=== PATIENT | female | born 1955 | race Caucasian/White ===

== ENCOUNTER 2024-04-08 12:49 | Emergency (ER) | payer MEDICARE, SELFPAY ==
--- NOTE | ~2024-04-08 | CT_ITS ---
CLINICAL HISTORY: SOB CT angiography chest with contrast. 3D Postprocessing. Comparison: None Findings: The heart size is normal. RV/LV ratio is normal. Unremarkable thoracic aorta and great vessels. No aneurysm. No acute pulmonary embolus. The visualized thyroid and mediastinum are unremarkable. 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 The lungs are clear. There is no consolidation or pleural effusion. The upper abdomen is unremarkable. No acute fractures. IMPRESSION: There is no evidence of pulmonary artery embolism. This document has been electronically signed by: Irasema Chin MD on 04/08/2024 18:24:24
--- NOTE | ~2024-04-08 | XR_ITS ---
CLINICAL HISTORY: SOB 2 view chest x-ray Comparison: None Findings: The lungs are clear. Heart size is normal. No acute fracture. IMPRESSION: 1. No acute findings. This document has been electronically signed by: Irasema Chin MD on 04/08/2024 15:14:27
--- NOTE | ~2024-04-08 | CT_ITS ---
CLINICAL HISTORY: headaches CT head without contrast Comparison: None Findings: No intra-axial mass, midline shift, hydrocephalus, or acute hemorrhage. No significant atrophy-like change or white matter disease. Mild mucosal thickening within the paranasal sinuses. The orbits are unremarkable. There is no acute fracture. IMPRESSION: 1. No acute intracranial findings. This document has been electronically signed by: Irasema Chin MD on 04/08/2024 18:26:34
[2024-04-08 12:53] VITALS: BP 200/89; PULSE 90; RESP 18; TEMP 35.9; O2SAT 99; BMI 36.1
--- NOTE | 2024-04-08 12:56 | ED.GENADULT ---
HPI - General Adult General Chief complaint: Dyspnea Stated complaint: sob, dizziness, fatigue Time Seen by Provider: 04/08/24 16:23 Source: patient Mode of arrival: ambulatory Limitations: no limitations History of Present Illness ED Provider: Olivier Vidal HPI narrative: 69-year-old female past medical history of hypertension, and depression presents to ED for worsening shortness of breath on exertion for the past 4-5 weeks frequent headaches and chills. Patient denies any leg swelling, calf pain, recent long travel or recent surgery. Patient is on its Toradol and has significant family history of blood clot. Patient states her brother from a pulmonary embolus and her mother also had history of blood clots. Patient denies any bleeding disorders. Patient denies any abdominal pain, nausea, vomiting, coughing up blood, neck stiffness, photophobia, or rash. Patient denies any chest pain Related Data Allergies Allergy/AdvReac Type Severity Reaction Status Date / Time morphine Allergy Unknown Verified 04/08/24 12:58 Review of Systems Review of Systems: Shortness of breath on exertion for the past 4-5 weeks, headaches, chills Yes all other systems are reviewed and are negative [facility] Social History Social History Advance Directives: No Advance Directives Information Provided: No Physical Exam ED Vital Signs: Vital Signs - 24 hr 04/08/24 12:53 04/08/24 16:22 04/08/24 18:55 Temperature 96.6 F L Pulse Rate 90 89 78 Respiratory Rate 18 20 18 Blood Pressure 200/89 H 176/98 H 169/80 H Pulse Oximetry 99 97 98 Oxygen Delivery Method Room Air Room Air 04/08/24 19:15 Temperature 98.0 F Pulse Rate 78 Respiratory Rate 18 Blood Pressure 169/80 H Pulse Oximetry 98 Oxygen Delivery Method Room Air BMI result Body Mass Index 36.1 Const General: cooperative, healthy appearing, comfortable, no acute distress, well developed, alert, awake and Physically active Orientation/consciousness: patient oriented x3 HENMT Head: Yes normal to inspection, Yes No palpable skull fracture present, Yes normocephalic and Yes atraumatic Throat: Yes posterior oropharynx normal, Yes tonsils normal and Yes uvula midline Eyes General: appearance normal, both eyes and all related structures Neck Neck: Yes normal visual inspection, Yes full ROM, Yes no lymphadenopathy, Yes no meningeal signs, Yes trachea midline, Yes supple, No anterior neck swelling and No tender Chest Chest palpation & inspection: normal inspection of the chest and normal palpation of entire chest wall Resp Effort & Inspection: normal respiratory effort and able to speak in complete sentences Cardio Jugular venous distension: no JVD Heart sounds: S1 normal heart sound present and S2 normal heart sound present GI Inspection: Yes normal to inspection Palpation (GI): Soft to palpation, not firm, nontender, no guarding and not rigid General: Yes no CVA tenderness Back/Spine/Pelvis Back: no CVA tenderness and No back tenderness Skin General skin exam: no rashes or lesions noted, elasticity normal and turgor normal Neuro General: patient oriented x3, gait normal, tone normal, moves all extremities, Normal light touch and pain sensation, no meningeal signs, no focal motor deficits, CN's II-XI intact bilaterally and normal sensation to monofilament Extrem Other: Bilateral lower extremity negative for swelling, pitting edema, or calf tenderness General: Yes normal to inspection and Yes full ROM Psych Appearance: grossly normal, well kempt and not disheveled Course Course Course Narrative: This is an RME performed by Jessica Barroso CNP: Additional HPI, ROS, PE not included below will be deferred to primary provider. Patient is a 69-year-old female who reports that over the past 4-5 weeks increasing shortness of breath up and down the stairs. Able to perform her yoga session was in the morning without difficulty. Over the past few months his eye so that having intermittent pounding headaches, cold sweats and chills, generalized fatigue. Admits that mid last year she did have Holter monitor and stress testing due to symptoms, no abnormalities were found Plan: Serum labs, EKG, CXR, viral serologies Medications Administered Discontinued Medications Generic Name Dose Route Start Last Admin Trade Name Freq PRN Reason Stop Dose Admin Iohexol 65 ml 04/08/24 17:40 04/08/24 17:40 Iohexol 350 Mg/Ml 100 Ml Infus..Btl IV 04/08/24 17:41 65 ml ONCE ONE Administration Medical Decision Making Medical Decision Making [facility] Narrative: 69-year-old female presents to ED for continued shortness of breath on exertion for the past 4-5 weeks patient concerned for pulmonary embolus due to being on a stronger and significant family history of pulmonary embolus. Presently patient is not tachypneic or tachycardic. Negative for any leg swelling or calf pain. Initial troponin negative will do a chest CTA to rule out PE. Initial chest x-ray negative. COVID flu and influenza RSV negative 6:31pm: Head CT scan came back normal. 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 Patient has no abdominal pain. Patient made aware of this will follow up with primary care provider. Patient explained worrisome signs and informed to return to the ED immediately Differential Diagnosis Differential Diagnoses: The differential diagnosis associated with the presentation includes (PE, CA, CHF) Admission/Observation Consideration of admission/observation: Escalation of care including admission/observation considered Lab Data MDM Lab Attestation statement: I reviewed the patient's lab results. 04/08/24 13:17 04/08/24 13:17 Labs: Lab Results 04/08/24 04/08/24 04/08/24 Range/Units 13:17 16:27 17:07 WBC 5.6 (4.8-10.8) X10*3/uL RBC 4.87 (4.20-5.50) X10*6/uL Hgb 15.1 (12.0-16.0) g/dl Hct 45.7 (37.0-47.0) % MCV 93.8 (80.0-98.0) fL MCH 31.0 (27.0-33.0) pg MCHC 33.0 (31.0-35.0) g/dl RDW 13.7 (11.0-16.0) % Plt Count 216 (160-400) X10*3/uL MPV 10.3 (9.4-12.3) fL Immature Gran % (Auto) 0.4 (0.0-0.4) % Neut % (Auto) 42.7 L (45-73) % Lymph % (Auto) 46.1 H (20-40) % [place] % (Auto) 7.2 (2-11) % Eos % (Auto) 3.1 (0-4) % Baso % (Auto) 0.5 (0-2) % Lymph # (Auto) 2.6 (1.2-4.9) X10*3/uL [place] # (Auto) 0.4 (0.1-1.2) X10*3/uL Eos # (Auto) 0.2 (0.0-0.4) X10*3/uL Baso # (Auto) 0.0 (0.0-0.2) X10*3/uL Abs Immat Gran (auto) 0.02 (0.00-0.03) X10*3/uL Absolute Neuts (auto) 2.4 (2.0-8.3) x10*3/uL Absolute Nucleated RBC 0.000 (0.0-0.012) X10*3/uL Nucleated RBC % (auto) 0.0 (0.0-0.2) /100WBC Hold Purple Top SEE NOTE PT 11.1 (10.9-12.4) SEC INR 1.0 (0.9-1.1) Sodium 141 (135-145) mmol/L Potassium 4.3 (3.3-5.1) mmol/L Chloride 109 H (96-108) mmol/L Carbon Dioxide 24 (22-29) mmol/L Anion Gap 12 (12-20) BUN 19 H (9-16) mg/dL Creatinine 0.94 (0.5-1.4) mg/dL Estim Creat Clear Calc 67.9 Estimated GFR 59 Random Glucose 100 (60-115) mg/dL Calcium 9.3 (8.4-10.2) mg/dL Magnesium 2.0 (1.6-2.6) mg/dL Total Bilirubin 0.4 (0.0-1.0) mg/dL AST 22 (5-31) U/L ALT 26 (0-31) U/L Alkaline Phosphatase 54 (39-117) U/L Troponin I High Sens < 2.7 < 2.7 (<3.5-17.0) ng/L B-Natriuretic Peptide 20 (<100) pg/mL Total Protein 8.0 (6.5-8.0) g/dL Albumin 4.4 (3.5-5.0) g/dL Lipase 14 (8-78) U/L Urine Color Yellow Urine Appearance Clear Urine pH 5.5 (5.0-9.0) Ur Specific [place] 1.010 (1.005-1.025) Urine Protein Negative (Neg-Trace) mg/dL Urine Glucose (UA) Negative (Negative) mg/dL Urine Ketones Negative (Negative) mg/dL Urine Blood Negative (Negative) Urine Nitrite Negative (Negative) Ur Leukocyte Esterase Negative (Negative) Influenza Type A (PCR) NEGATIVE (Negative) Influenza Type B (PCR) NEGATIVE (Negative) RSV RNA Qual (PCR) NEGATIVE (Negative) SARS-CoV-2 RNA (RT-PCR) NEGATIVE (Negative) Independent Interpretation I performed an independent interpretation of an: EKG (Negative STEMI) and CT Scan Radiology Impression Discussion of test interpretation with radiology: I have reviewed the radiologist's reading. Independent Historian Clinical information obtained from an independent historian. History obtained from or confirmed by: Other (patient) Discharge Plan Discharge Clinical Impression: Breath shortness, Headache Patient Disposition: Home, Self-Care Instructions: Acute Headache (ED), Shortness of Breath (ED) Additional Instructions: Your CT scan labs and EKGs came back reassuring. You will need to follow up with the primary care provider. Return to the ED immediately for any chest pain, shortness of breath, abdominal pain, slurred speech, facial droop, paralysis, loss of vision, leg swelling, calf pain, fever, chills, or any other concerning symptoms. CT angiography chest with contrast. 3D Postprocessing. Comparison: None Findings: The heart size is normal. RV/LV ratio is normal. Unremarkable thoracic aorta and great vessels. No aneurysm. No acute pulmonary embolus. The visualized thyroid and mediastinum are unremarkable. 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 The lungs are clear. There is no consolidation or pleural effusion. The upper abdomen is unremarkable. No acute fractures. IMPRESSION: There is no evidence of pulmonary artery embolism. This document has been electronically signed by: Irasema Chin MD on 04/08/2024 18:24:24 Dictated By: Irasema Chin MD Signed By: <Electronically signed by Irasema Chin MD in OV> 04/08/24 [id number] CLINICAL HISTORY: headaches CT head without contrast Comparison: None Findings: No intra-axial mass, midline shift, hydrocephalus, or acute hemorrhage. No significant atrophy-like change or white matter disease. Mild mucosal thickening within the paranasal sinuses. The orbits are unremarkable. There is no acute fracture. IMPRESSION: 1. No acute intracranial findings. This document has been electronically signed by: Irasema Chin MD on 04/08/2024 18:26:34 Dictated By: Irasema Chin MD Signed By: <Electronically signed by Irasema hCin MD in OV> 04/08/24 [id number] Referrals: Ramin Sequeira DO, MD [Primary Care Provider] - (Shortness of breath for 5 weeks.) Stand Alone Forms: Work/School Release Interventions: ED Discharge Assessment Last Done: 04/08/24 19:15 Discharge Date/Time: 04/08/24 19:17 Print Language: Brazilian
--- NOTE | 2024-04-08 12:58 | ECG_ITS ---
Test Reason : SOB Blood Pressure : */* mmHG Vent. Rate : 72 BPM Atrial Rate : 72 BPM P-R Int : 154 ms QRS Dur : 82 ms QT Int : 406 ms P-R-T Axes : 20 12 22 degrees QTcB Int : 444 ms Normal sinus rhythm with sinus arrhythmia Normal ECG No previous ECGs available Referred By: Carlene Barroso Electronically Signed By: MANDO HEBERT MD
[2024-04-08 13:23] LABS: MANUAL DIFF FLAG NO
[2024-04-08 13:29] LABS: Prothrombin Time 11.1 SEC (10.9-12.4)
[2024-04-08 13:33] LABS: Basophils Percent Auto 0.5 % (0-2); Eosinophils Absolute Auto 0.2 X10*3/uL (0.0-0.4); Eosinophils Percent Auto 3.1 % (0-4); Hematocrit 45.7 % (37.0-47.0); Hemoglobin 15.1 g/dl (12.0-16.0); Imm Gran Abs Auto 0.02 X10*3/uL (0.00-0.03); Imm Gran Pct Auto 0.4 % (0.0-0.4); Lymphocytes Absolute Auto 2.6 X10*3/uL (1.2-4.9); Lymphocytes Percent Auto 46.1 % (20-40); Mean Corpuscular Volume 93.8 fL (80.0-98.0); Mean Platelet Volume 10.3 fL (9.4-12.3); Monocytes Absolute Auto 0.4 X10*3/uL (0.1-1.2); Monocytes Percent Auto 7.2 % (2-11); Neutrophils Absolute Auto 2.4 x10*3/uL (2.0-8.3); Neutrophils Percent Auto 42.7 % (45-73); Platelet Count 216 X10*3/uL (160-400); Red Blood Count 4.87 X10*6/uL (4.20-5.50); Red Cell Distribution Width 13.7 % (11.0-16.0); White Blood Count 5.6 X10*3/uL (4.8-10.8)
[2024-04-08 13:43] LABS: Alanine Aminotransferase 26 U/L (0-31); Albumin Level 4.4 g/dL (3.5-5.0); Alkaline Phosphatase 54 U/L (39-117); Anion Gap 12 (12-20); Aspartate Amino Transferase 22 U/L (5-31); Bilirubin Total 0.4 mg/dL (0.0-1.0); Blood Urea Nitrogen 19 mg/dL (9-16); Calcium 9.3 mg/dL (8.4-10.2); Carbon Dioxide 24 mmol/L (22-29); Chloride 109 mmol/L (96-108); Creatinine Clr Calc Pharmacy 67.9; Estimated Glomerular Filt Rate 59; Glucose Random 100 mg/dL (60-115); Lipase 14 U/L (8-78); Potassium 4.3 mmol/L (3.3-5.1); Sodium 141 mmol/L (135-145)
[2024-04-08 13:48] LABS: B Type Natriuretic Peptide 20 pg/mL (<100)
[2024-04-08 13:50] LABS: Troponin-I High Sensitivity < 2.7 ng/L (<3.5-17.0)
[2024-04-08 14:01] LABS: Influenza A PCR NEGATIVE (Negative); Influenza B PCR NEGATIVE (Negative); Resp Syncy Virus RNA Qual PCR NEGATIVE (Negative); SARS COV2 PCR INHOUSE NEGATIVE (Negative)
[2024-04-08 16:22] VITALS: BP 176/98; PULSE 89; RESP 20; O2SAT 97
[2024-04-08 16:33] LABS: Appearance Urine Clear; Color Urine Yellow; Glucose Urine UA Negative (Negative); Leukocyte Esterase Urine Negative (Negative); Nitrite Urine Negative (Negative); PH 5.5 (5.0-9.0); Urine Blood Negative (Negative); Urine Ketones Negative (Negative); Urine Protein Negative (Neg-Trace)
[2024-04-08 17:37] LABS: Troponin-I High Sensitivity < 2.7 ng/L (<3.5-17.0)
[2024-04-08] MEDS: iohexoL 350 MG/ML 100 ML INFUS..BTL 65 ML IV (17:40)
[2024-04-08 18:55] VITALS: BP 169/80; PULSE 78; RESP 18; O2SAT 98
[2024-04-08 19:15] VITALS: BP 169/80; PULSE 78; RESP 18; TEMP 36.7; O2SAT 98
--- NOTE | 2024-04-08 19:17 | PC.NURSE ---
DC paperwork reviewed with patient, patient requesting all lab work printed, informed patient she can utilize patient portal and/or call medical records, unable to print all lab work her through an ER visit. All other questions answered, patient verbalized understanding. Walked with steady gait out of department.
== END 2024-04-08 19:17 | disposition home or self-care (01) ==
PROVIDERS: Nurse Practitioner Family; Physician Assistant; Emergency Provider Emergency Medicine; PCP Internal Medicine
DX: R06.02 Shortness of breath (principal); R42 Dizziness and giddiness; I49.8 Other specified cardiac arrhythmias; R53.83 Other fatigue; R51.9 Headache, unspecified; Z03.818 Encounter for observation for suspected exposure to other biological agents ruled out; Z79.899 Other long term (current) drug therapy
CPT/HCPCS: 0241U; 36415; 70450; 71046; 71275; 80053; 81003; 83690; 83735; 83880; 84484; 85025; 85610; 93005; 99284; Q9967

== ENCOUNTER → 2024-04-08 12:58 | Outpatient (BNV) | payer MEDICARE, SELFPAY | PROVIDERS: Emergency Provider Emergency Medicine; PCP Internal Medicine; Visit Provider Internal Medicine Cardiovascular Disease | DX: R06.02 Shortness of breath (principal) | CPT/HCPCS: 93010 ==

== ENCOUNTER → 2024-04-08 12:59 | Outpatient (BNV) | payer MEDICARE, SELFPAY | PROVIDERS: PCP Internal Medicine; Visit Provider Radiology Diagnostic Radiology | DX: R06.02 Shortness of breath (principal); R51.9 Headache, unspecified | CPT/HCPCS: 70450; 71046; 71275 ==

== ENCOUNTER 2024-07-31 08:23 | Outpatient (AMB) | payer MEDICARE, SELFPAY ==
--- NOTE | 2024-07-31 08:30 | MHC.PC.OV ---
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 Cloth Required: No Accompanied by: Self / Same As Patient Allergies apricot Allergy (Severe, Verified 07/31/24 09:05) swolen throat baclofen Allergy (Severe, Verified 07/31/24 09:05) close throat morphine Allergy (Verified 07/31/24 09:05) Unknown tegaserod [From Zelnorm] Adverse Reaction (Severe, Verified 07/31/24 09:05) rectal bleeding Medication List - Last Reconciled 07/31/24 by Katt Rosenbaum PA-C cholecalciferol (vitamin D3) 10 mcg PO DAILY coenzyme Q10 (Co Q-10) 10 mg PO TID estradiol 0.5 mg PO DAILY fluticasone propionate 50 mcg/actuation (Flonase Allergy Relief) 1 spray intranasal DAILY loratadine (Allergy Relief (loratadine)) 10 mg PO DAILY losartan 50 mg PO DAILY multivitamin 1 tab PO DAILY venlafaxine ER 37.5 mg PO DAILY Tobacco use date assessed: 07/31/24 Fall risk assessment: 1 Fall in past year Last assessed Fall Risk: 07/31/24 Dental Screening Dental Screen Date: 07/31/24 Did you have a dental visit in the last 12 months?: Yes Did you have a dental problem in the last 6 months where you did not have access to dental care?: No Was dental information given to patient?: Patient has dentist HPI 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 Patient was previously being seen by [facility] last seen 04/10/2024.?She does have a history of diverticulosis s/p partial colectomy.?Mammogram last completed 09/2023 with DEXA scan at that time. MRA/MRI was ordered of the brain for chronic daily headache, echocardiogram was ordered for shortness of breath with consideration of cardiac referral. Patient was referred to General surgery for diaphragmatic hernia. no longer having SOB, chest pain, headaches all have resolved. Patient has had a recent change in insurance was caused her to leave her last practice. She was previously having chest pain, anxiety and shortness of breath which she attributes to relapsing tick fever and recurrent Lyme disease . Patient has been seen by infectious disease for this concern and Lyme disease was ruled out but does occasionally obtain doxycycline for treatment of these episodes. She is no longer having headaches, chest pain or shortness of breath and has not had any and several months. Her workup while she was at [facility] was negative at that time. 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 Medical History Babesiasis Lyme disease Surgical History S/P right rotator cuff repair H/O right hemicolectomy S/P bunionectomy Family History Father No problems noted. Mother Breast cancer Brother No problems noted. Brother No problems noted. Daughter No problems noted. Son No problems noted. Social History Housing: House Patient Tobacco Use Status: Never used Tobacco Tobacco use type: Cigarette e-Cigarette/Vaping Use: Never Used Second Hand Smoke Exposure: No Current occupational status: retired Cognitive needs: No Hearing needs: No Vision needs: Yes Female Reproductive History Menstrual Total pregnancies: 3 Ab spontaneous: 1 History of abnormal pap smear: Yes (more than 20 years ago ) Date of last Bone Density Screenin09/29/23 Questionnaire PHQ-9 Over the last 2 weeks, how often have you been bothered by any of the following problems? 1. Little interest or pleasure in doing things: several days 2. Feeling down, depressed, or hopeless: several days 3. Trouble falling or staying asleep, or sleeping too much: nearly every day 4. Feeling tired or having little energy: nearly every day 5. Poor appetite or overeating: several days 6. Feeling bad about yourself - or that you are a failure or have let yourself or your family down: several days 7. Trouble concentrating on things, such as reading the newspaper or watching television: not at all 8. Moving or speaking so slowly that other people could have noticed. Or the opposite - being so fidgety or restless that you have been moving around a lot more than usual: not at all 9. Thoughts that you would be better off or of hurting yourself in some way: not at all Total score: 10 Depression Screening Interpretation: Positive Depression Screening Follow-up: Existing condition and In treatment Depression Screening Done: Yes 02420 - PHQ-9 Billing: Yes Source: Developed by Drs. Denilson Martin, Meron Trotter, Kwaku Rogers and colleagues, with an educational opal from [employer]. Thrive Questionnaire Date Thrive assessed: 07/31/24 I am a: Patient What is your living situation today?: I have a steady place to live Within the past 12 months, did the food you bought not last and you didn't have the money to get more?: Sometimes True Within the past 12 months, did you worry whether your food would run out before you got money to buy more?: Never true Do you have trouble paying for medicines?: No Do you have trouble getting transportation to medical appointments?: No Do you have trouble paying your heating and electricity bill?: No Do you have trouble taking care of your child, family member or friend?: No Do you have trouble with day-to-day activities such as bathing, preparing meals, shopping, managing finances, etc.?: No Are you currently unemployed and looking for a job?: Yes Are you interested in more education?: No Please select the resources that you would like help with: None Currently or been in a relationship where the following occur: No concerns reported THRIVE Score: 1 AUDIT C Alcohol Use Questionnaire (AUDIT-C) 1. How often do you have a drink containing alcohol?: 2-3 times a week 2. How many drinks containing alcohol do you have on a typical day when you are drinking?: 1 or 2 3. How often do you have six or more drinks on one occasion?: Never Total Score: 3 ALLIE-7 AMB Questionnaire ALLIE-7 Date ALLIE - 7 assessed: 07/31/24 Feeling nervous, anxious, or on edge: 1 = Several days Not being able to stop or control worryin = Several days Worrying too much about different things: 1 = Several days Trouble relaxin = Several days Being so restless that it is hard to sit still: 0 = Not at all Becoming easily annoyed or irritable: 0 = Not at all Feeling afraid as if something awful might happen: 0 = Not at all Total ALLIE-7 score (0-4 normal; 5-9 mild; 10-14 moderate; 15-21 severe): 4 Source: Developed by Drs. Denilson Martin, Meron Trotter, Kwaku Rogers and colleagues, with an educational opal from [employer]. ALLIE-7 Assessment Billing ALLIE-7 Assessment Tool: ALLIE-7 Assessment 26784 Review of Systems Const Denies body aches, Denies chills, Denies fever(s), Denies headache(s) and Denies poor appetite Eyes Reports no additional complaints ENT Denies dysphagia, Denies dizziness, Denies headache(s) and Denies odynophagia Card Denies chest pain, Denies syncope, Denies edema, Denies irregular heart rhythm, Denies lightheadedness and Denies dyspnea Resp Denies cough and Denies dyspnea GI Denies abdominal pain, Denies constipation, Denies dysphagia, Denies diarrhea, Denies nausea, Denies odynophagia and Denies vomiting Reports no additional complaints Musc Reports no additional complaints and Denies abnormal gait Skin/Breast Reports system reviewed and no additional complaints, except as documented Neuro Denies abnormal gait, Denies dizziness, Denies syncope and Denies headache(s) Psych Reports no additional complaints Physical exam (Primary Care) Vital Signs: Last Vital Signs BP 120/80 07/31/24 08:31 Pulse Ox 98 07/31/24 08:31 Oxygen Delivery Method Room Air 07/31/24 08:31 BMI result Body Mass Index 39.4 Tobacco/Smoking Status: Tobacco use Status Tobacco use date assessed 07/31/24 07/31/24 08:42 Patient Tobacco Use Status Never used Tobacco 07/31/24 09:01 Tobacco use type Cigarette 07/31/24 09:01 e-Cigarette/Vaping Use Never Used 07/31/24 09:01 PHQ-9: PHQ-9 Score PHQ-9: Total score 10 07/31/24 13:07 Depression Screening Interpretation: Positive Depression Screening Follow-up: Existing condition and In treatment Thrive Assessment: Date of Thrive Assessment Date Thrive assessed 07/31/24 07/31/24 08:42 Currently or been in a relationship where the following occur: No concerns reported Const General: cooperative, healthy appearing, comfortable and no acute distress Orientation/consciousness: patient oriented x3 HENMT Head: Yes normocephalic Ears: hearing grossly normal bilaterally General nose exam: Normal external nose present Eyes General: appearance normal, both eyes and all related structures Conjunctivae: conjunctivae normal Neck Neck: Yes full ROM and Yes no lymphadenopathy Resp Effort & Inspection: normal respiratory effort Auscultation: clear to auscultation bilaterally, no crackles, no rales, no rhonchi and no wheezes Cardio Rate: regular rate Rhythm: regular rhythm Skin General skin exam: no rashes or lesions noted Neuro General: patient oriented x3 Gait exam (Neuro): Normal gait present Extrem General: Yes normal to inspection, Yes full ROM and No edema Psych Affect: normal affect Attitude: cooperative Insight: Good insight present (Psych) Judgement: Good judgement present (Psych) Coding Level of Care Code New Pt Level 4 (62538) Diagnoses Depression F32.A Hypertension I10 Diverticulosis K57.90 Headache R51.9 Breath shortness R06.02 Sleep apnea G47.30 Obesity (BMI 30-39.9) E66.9 Screening for hypercholesterolemia Z13.220 Abdominal pain R10.9 Additional Codes ALLIE-7 Assessment Billing - ALLIE-7 Assessment Tool: ALLIE-7 Assessment 35902 ([id number]) PHQ-9 - 63981 - PHQ-9 Billing: Yes ([id number]) Assessment & Plan Assessment & Plan (1) Depression: Code(s): F32.A - Depression, unspecified Category: Medical Plan: Patient feels her depression is well managed with the venlafaxine at this time. Declining referral for counseling. (2) Hypertension: Code(s): I10 - Essential (primary) hypertension Category: Medical Plan: Continue on current blood pressure medication. Avoid salt intake and encourage healthy diet and regular exercise. (3) Diverticulosis: Code(s): K57.90 - Diverticulosis of intestine, part unspecified, without perforation or abscess without bleeding Category: Medical Plan: S/p colectomy. Continue to follow with GI (4) Headache: Code(s): R51.9 - Headache, unspecified Category: Medical Plan: MRI/MRA was ordered by last PCP to evaluate headache which was not completed as patient is no longer having headache. Advised patient to continue to monitor her symptoms at this time and reach out if she begins to have headaches. (5) Breath shortness: Code(s): R06.02 - Shortness of breath Category: Medical Plan: Shortness of breath has also resolved she has not had an episode in several months. Declining workup at this time. (6) Sleep apnea: Code(s): G47.30 - Sleep apnea, unspecified Category: Medical Plan: Patient reporting history of sleep apnea is requesting referral to pulmonology. Referral was placed to Dr. Johnston at patient request (7) Obesity (BMI 30-39.9): Code(s): E66.9 - Obesity, unspecified Category: Medical Plan: Healthy diet and regular exercise is encouraged. (8) Screening for hypercholesterolemia: Code(s): Z13.220 - Encounter for screening for lipoid disorders Category: Medical Plan: bood work ordered (9) Abdominal pain: Code(s): R10.9 - Unspecified abdominal pain Category: Medical Plan: Patient reporting episodic abdominal pain that was treated by her last PCP with cyclobenzaprine with good relief. She has not had an episode in several months but does use the cyclobenzaprine as needed. Plan The patient's immediate care plan involves transitioning to our practice's service in view of her recent insurance changes, alongside maintaining stability in her essential hypertension via losartan. Given the psychosocial aspects impacting mood and status, continuation of venlafaxine for depression is viable in parallel to monitoring overall health maintenance through routine screenings and lab work. Establishing recommendations and follow-up with specialists for her sleep apnea, gynecological needs, and updated imaging supports a comprehensive approach. A three-month return is encouraged to reassess physical and lab evaluations after implementing these measures. This note was constructed using voice recognition software. While every effort has been made to ensure accuracy and carport erector, still areas may have been included sometimes these areas may affect the content or meeting of the given symptoms. Total time spent caring for the patient today was 30 minutes. This includes time spent before the visit reviewing the chart, time spent during the visit, and time spent after the visit and documentation. Patient was informed and verbally consented to the use of an ambient scribe for clinic note documentation during this visit. Orders: Orders Vitamin B12 and Folate Today I10 - Essential (primary) hypertension, Z13.21 - Encounter for screening for nutritional disorder Hemoglobin A1c Today Z13.1 - Encounter for screening for diabetes mellitus MM tomosynthesis screening BI Today Z12.31 - Encounter for screening mammogram for malignant neoplasm of breast Complete Blood Count Auto Diff Today I10 - Essential (primary) hypertension, Z00.00 - Encounter for general adult medical examination without abnormal findings Comprehensive Met. Panel Today I10 - Essential (primary) hypertension, Z00.00 - Encounter for general adult medical examination without abnormal findings Lipid Panel Today I10 - Essential (primary) hypertension, Z13.220 - Encounter for screening for lipoid disorders Vitamin D 25-OH Total Today I10 - Essential (primary) hypertension, Z00.00 - Encounter for general adult medical examination without abnormal findings TSH reflex Free T4 Today I10 - Essential (primary) hypertension, Z00.00 - Encounter for general adult medical examination without abnormal findings Free T4 (Free Thyroxine) Today I10 - Essential (primary) hypertension, Z00.00 - Encounter for general adult medical examination without abnormal findings Referrals SENIOR HUMAN RESOURCES REPRESENTATIVE Referral Z12.4 - Encounter for screening for malignant neoplasm of cervix Pulmonology Referral G47.30 - Sleep apnea, unspecified Medications: New cyclobenzaprine 10 mg PO BEDTIME PRN 30 tabs 0RF muscle spasm
[2024-07-31 08:31] VITALS: BP 120/80; O2SAT 98; BMI 39.4
--- OUTSIDE RECORDS SUMMARY | 2024-07-31 08:35 | XMS_ITS | Clinical Summary ---
Author Organization [address] [facility] Address [address] [place] [address] Phone Care Team Providers Care Right Of Way Manager Name Role Phone Ramin Sequeira DO Primary Care Provider [phone] Social History Tobacco Use Types Packs/Day Years Used Date Smoking Tobacco: Never Assessed Comments Unknown Sex and Gender Information Value Date Recorded Sex Assigned at Not on file Legal Sex Female 3:53 AM EST Gender Identity Not on file Sexual Orientation Not on file Plan of Treatment Health Maintenance Due Date Last Done Comments Breast Cancer Screening 1955 DTaP,Tdap,and Td Vaccines (1 - Tdap) 1974 Pneumococcal Vaccine: 50+ Ye ars (1 of 1 - PCV) 2005 Zoster Vaccines (1 of 2) 2005 COVID-19 Vaccine ( - 2023-2 5 season) 2023 Depression Screening 01/04/2024 Falls Risk Assessment 01/04/2024 Hepatitis C Screening 01/04/2024 Medicare Annual Wellness Visit 01/04/2024 Osteoporosis Screening (Bone Density Screening) 01/04/2024 Social Influencers of Health Screening 01/04/2024 Influenza Vaccine (Season Ended) 2024 Hypertension/CHF/CAD Annual BMP Blood Test 01/03/2025 01/04/2024 Colorectal Cancer Screening: Colonoscopy 01/16/2025 01/17/2020 Cholesterol Screening (Lipid Panel) 01/03/2029 01/04/2024 RSV Immunization Adult Patie nts (1 - 1-dose 75+ series) 2030 HIB Vaccines Aged Out No longer eligi ble based on patient's age to complete this topic HPV Vaccines Aged Out No longer eligi ble based on patient's age to complete this topic Hepatitis A Vaccines Aged Out No long er eligible based on patient's age to complete this topic Hepatitis B Vaccines Aged Out No long er eligible based on patient's age to complete this topic IPV Vaccines Aged Out No longer eligi ble based on patient's age to complete this topic MMR Vaccines Aged Out No longer eligi ble based on patient's age to complete this topic Meningococcal ACWY Vaccine Aged Out N o longer eligible based on patient's age to complete this topic Meningococcal B Vaccine Aged Out No l onger eligible based on patient's age to complete this topic RSV Immunization Patients Un alfred 20 months Aged Out No longer eligible b ased on patient's age to complete this topic Varicella Vaccines Aged Out No longer eligible based on patient's age to complete this topic Procedures Procedure Name Priority Date/Time Associated Diagnosis Comments BASIC METABOLIC PANEL Routine 01/04/2024 1:30 PM EST Essential hypertension, malignant Coronary atherosclerosis due to severely calcified coronary lesion Nipple anomaly Obesity, unspecified Anxiety disorder of childhood or adolescence Bilateral sciatica Lyme disease Breast pain LIPID PANEL WITH REFLEX TO DIRECT LDL Routine 01/04/2024 1:30 PM EST Essential hypertension, malignant Coronary atherosclerosis due to severely calcified coronary lesion Nipple anomaly Obesity, unspecified 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 HDL 44 >=40 mg/dL LAB CHEMISTRY METHOD 01/04/2024 5:05 PM [facility] LDL Calculated 114(H) 0 - 100 mg/dL LAB CHEMISTRY METHOD 01/04/2024 5:05 PM [facility] VLDL Cholesterol Luis M 24.8 mg/dL LAB CHEMISTRY METHOD 01/04/2024 5:05 PM [facility] Non HDL Chol. (LDL+VLDL) 139 <145 mg/dL LAB CHEMISTRY METHOD 01/04/2024 5:05 PM [facility] Chol/HDL Ratio 4.2 0.0 - 4.4 LAB CHEMISTRY METHOD 01/04/2024 5:05 PM [facility] Blood Venous blood specimen / Unknown Venipuncture / Unknown 01/04/2024 1:30 PM EST 01/04/2024 3:37 PM EST us Rouse Finnegan PSYCHIATRIC TECH LAB BLOOD ORDERABLES Final Resul t [facility] [address] [place] [address], [place] [phone] * (ABNORMAL) Basic metabolic panel (01/04/2024 1:30 PM EST) Sodium 139 133 - 145 mmol/L LAB CHEMISTRY METHOD 01/04/2024 5:04 PM [facility] Potassium 4.0 3.5 - 5.5 mmol/L LAB CHEMISTRY METHOD 01/04/2024 5:04 PM [facility] Chloride 110 96 - 110 mmol/L LAB CHEMISTRY METHOD 01/04/2024 5:04 PM [facility] CO2 23 21 - 32 mmol/L LAB CHEMISTRY METHOD 01/04/2024 5:04 PM [facility] Anion Gap 6 3 - 11 LAB CHEMISTRY METHOD 01/04/2024 5:04 PM [facility] Glucose 110(H) 70 - 100 mg/dL LAB CHEMISTRY METHOD 01/04/2024 5:04 PM [facility] BUN 16 5 - 25 mg/dL LAB CHEMISTRY METHOD 01/04/2024 5:04 PM [facility] Creatinine 0.98 0.50 - 1.10 mg/dL LAB CHEMISTRY METHOD 01/04/2024 5:[address] [facility] eGFR 63 >=60 mL/min/1. 73m2 LAB CHEMISTRY METHOD 01/04/2024 5:[address] [facility] Comment:Calculation based on the??Chronic Kidney Disease Epidemiology Collaboration (CKD-EPI) equation refit??without adjustment for race. BUN/Creatinine Ratio 16.3 LAB CHEMISTRY METHOD 01/04/2024 5:[address] [facility] Calcium 9.3 8.5 - 10.5 mg/dL LAB CHEMISTRY METHOD 01/04/2024 5:[address] [facility] Blood Venous blood specimen / Unknown Venipuncture / Unknown 01/04/2024 1:30 PM EST 01/04/2024 3:37 PM EST us Rouse Finnegan PSYCHIATRIC TECH LAB BLOOD ORDERABLES Final Resul t 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 Function Technologist Expl anation Health Care Decision (hx) 07/15/2014 AD COUGHLIN DIRECTIVE Health Care Decision (hx) 07/15/2014 AD COUGHLIN DIRECTIVE Health Care Decision (hx) 07/15/2014 AD COUGHLIN DIRECTIVE Health Care Decision (hx) 07/15/2014 AD COUGHLIN DIRECTIVE Health Care Decision (hx) 07/15/2014 AD COUGHLIN DIRECTIVE Health Care Decision (hx) 07/15/2014 AD COUGHLIN DIRECTIVE Health Care Decision (hx) 07/15/2014 AD COUGHLIN DIRECTIVE Health Care Decision (hx) 07/15/2014 AD OCUGHLIN DIRECTIVE Care Teams Right Of Way Manager Relationship Specialty Start Date End Date Ramin Sequeira DO [address] [place] [phone] PCP - General Internal Medicine 05/02/13
== END 2024-07-31 09:29 | disposition home or self-care (01) ==
DX: I10 Essential (primary) hypertension (principal); F32.A Depression, unspecified; E66.9 Obesity, unspecified; Z68.39 Body mass index [BMI] 39.0-39.9, adult; K57.90 Diverticulosis of intestine, part unspecified, without perforation or abscess without bleeding; R51.9 Headache, unspecified; R06.02 Shortness of breath; G47.30 Sleep apnea, unspecified; Z13.220 Encounter for screening for lipoid disorders; R10.9 Unspecified abdominal pain

== ENCOUNTER → 2024-07-31 08:23 | Outpatient (BNVA) | payer MEDICARE, SELFPAY | DX: I10 Essential (primary) hypertension (principal); F32.A Depression, unspecified; K57.90 Diverticulosis of intestine, part unspecified, without perforation or abscess without bleeding; F41.9 Anxiety disorder, unspecified; R51.9 Headache, unspecified; R06.02 Shortness of breath; G47.30 Sleep apnea, unspecified; E66.9 Obesity, unspecified; R10.9 Unspecified abdominal pain; Z68.39 Body mass index [BMI] 39.0-39.9, adult | CPT/HCPCS: 96127; 99202 ==

== ENCOUNTER 2024-10-10 13:59 | Outpatient (AMB) | payer MEDICARE, SELFPAY ==
--- NOTE | 2024-10-10 14:21 | A.OFFVIS_ITS ---
Vital Signs 10/10/24 14:22 Height 5 ft 3.39 in Weight 220 lb BMI 38.5 BP 122/72 Blood Pressure Location Rt brachial Position Sitting Pulse 80 Pulse Source Pulse Oximeter Pulse Oximetry (%) 98 Oxygen Delivery Method Room Air Intake Visit Reasons: Sleep apnea Allergies apricot Allergy (Severe, Verified 10/10/24 14:26) swolen throat baclofen Allergy (Severe, Verified 10/10/24 14:26) close throat morphine Allergy (Verified 10/10/24 14:) Unknown tegaserod (From Zelnorm) Adverse Reaction (Severe, Verified 10/10/24 14:26) rectal bleeding HPI HPI Sleep apnea: Details: 69-year-old lady, nonsmoker, with underlying history of moderate obstructive sleep apnea on CPAP, previously seen by [facility] sleep [facility] presents to transfer her care. Patient states that she has been using her CPAP machine with good control of her underlying sleep apnea symptoms. Patient also has underlying pulmonary nodules which were previously followed by [facility] pulmonary. She does have history of working for [employer]. 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 She denies family history of lung disease. Patient does complain of dyspnea on exertion especially when walking up stairs. [facility] Medical History Babesiasis Lyme disease Surgical History S/P right rotator cuff repair H/O right hemicolectomy S/P bunionectomy Family History Father No problems noted. Mother Breast cancer Brother No problems noted. Brother No problems noted. Daughter No problems noted. Son No problems noted. Social History (Updated 10/10/24 @ 14:28 by FISH Carrera) Housing: House Patient Tobacco Use Status: Never used Tobacco Tobacco use type: Cigarette e-Cigarette/Vaping Use: Never Used Second Hand Smoke Exposure: No Current occupational status: retired Cognitive needs: No Hearing needs: No Vision needs: Yes Review of Systems Const Denies daytime sleepiness, Denies excessive sweating, Denies fatigue, Denies fever(s), Denies lethargy, Denies malaise, Denies night sweats, Denies snoring and Denies weight loss Eyes Denies blurry vision and Denies itchy eyes ENT Denies nasal congestion, Denies post nasal drip, Denies sinus pain, Denies sinus pressure and Denies other ( Thrush) Card Denies chest pain, Denies pedal edema, Denies dyspnea, Reports dyspnea on exertion (Growing up stairs), Denies orthopnea and Denies paroxysmal nocturnal dyspnea Resp Denies cough, Denies hemoptysis, Denies excessive phlegm production, Denies dyspnea, Reports dyspnea on exertion (Growing up stairs), Denies snoring and Denies wheezing GI Denies abdominal pain and Denies heartburn Musc Denies myalgias, Denies arthralgias and Denies joint swelling Skin/Breast Denies rash Neuro Denies memory loss and Denies seizure-like activity Psych Denies abnormal sleep pattern, Denies anxiety and Denies memory loss Endo Denies excessive sweating, Denies fatigue and Denies heat intolerance Bhaskar/Lymph Denies easy bruising Aller/Immun Denies itchy eyes, Denies seasonal rhinorrhea and Denies wheezing Physical Exam Vital Signs: Last Vital Signs Pulse 80 10/10/24 14:22 BP 122/72 10/10/24 14:22 Pulse Ox 98 10/10/24 14:22 Oxygen Delivery Method Room Air 10/10/24 14:22 BMI result Body Mass Index 38.5 Const General: no acute distress and alert Nutritional Appearance: obese Orientation/consciousness: Other orientation findings ( oriented) HEENT Head: Yes atraumatic Eyes General: appearance normal, both eyes and all related structures Sclerae: sclerae normal EOM: EOMs intact bilaterally Neck Neck: Yes supple Lymphatic: no lymphadenopathy noted Resp Effort & Inspection: normal respiratory effort and no use of accessory muscles Auscultation: clear to auscultation bilaterally Cardio Rate: regular rate Rhythm: regular rhythm Heart sounds: no gallops, no murmurs and no rubs Skin General skin exam: other ( warm) Extrem General: No clubbing, No cyanosis and No edema Assessment & Plan Assessment & Plan (1) Pulmonary nodules: Code(s): R91.8 - Other nonspecific abnormal finding of lung field Category: Medical Plan: Patient with history of working in [employer] [facility]. Will repeat CT chest in compare to prior imaging. (2) Sleep apnea: Code(s): G47.30 - Sleep apnea, unspecified Category: Medical Plan: Well controlled on current CPAP therapy. Continue CPAP therapy. Patient DME provider is [facility]. (3) Dyspnea on exertion: Code(s): R06.09 - Other forms of dyspnea Category: Medical Plan: Unclear etiology at this time. Will evaluate pulmonary component with pulmonary function test. Orders: Orders CT chest wo IV con Today R91.8 - Other nonspecific abnormal finding of lung field PFT pulmonary function test Today R06.09 - Other forms of dyspnea Coding Level of Care Code New Pt Level 4 (61907) Diagnoses Pulmonary nodules R91.8 Sleep apnea G47.30 Dyspnea on exertion R06.09
--- OUTSIDE RECORDS SUMMARY | 2024-10-10 14:21 | XMS_ITS | Clinical Summary ---
Author Organization [address] [facility] Address [address] [place] [address] Phone Care Team Providers Care Audio Video Technician Name Role Phone Ramin Sequeira DO Primary Care Provider [phone] Social History Tobacco Use Types Packs/Day Years [...] Vaccine ( - 2023-2 5 season) 2023 Falls Risk Assessment 01/04/2024 Hepatitis C Screening 01/04/2024 Medicare Annual Wellness Visit 01/04/2024 Osteoporosis Screening (Bone Density Screening) 01/04/2024 Social Influencers of Health Screening 01/04/2024 Depression Screening 02/29/2024 Influenza Vaccine (#1) 2024 Hypertension/CHF/CAD Annual BMP Blood Test 01/03/2025 [...] mg/dL LAB CHEMISTRY METHOD 01/04/2024 5:05 PM [facility] Triglycerides 124 0 - 150 mg/dL LAB CHEMISTRY METHOD 01/04/2024 5:05 PM EST [facility] HDL 44 >=40 mg/dL LAB CHEMISTRY METHOD 01/04/2024 5:05 PM [facility] LDL Calculated 114(H) 0 - 100 mg/dL LAB CHEMISTRY METHOD 01/04/2024 5:05 PM [facility] VLDL Cholesterol Luis M 24.8 mg/dL LAB CHEMISTRY METHOD 01/04/2024 5:05 PM [facility] Non HDL Chol. (LDL+VLDL) 139 <145 mg/dL LAB CHEMISTRY METHOD 01/04/2024 5:05 PM [facility] Chol/HDL Ratio 4.2 0.0 - 4.4 LAB CHEMISTRY METHOD 01/04/2024 5:05 PM [facility] Blood Venous blood specimen / Unknown Venipuncture / Unknown 01/04/2024 1:30 PM EST 01/04/2024 3:37 PM EST us Rouse Finnegan HOUSE PAINTER HELPER LAB BLOOD ORDERABLES Final Resul t [facility] [address] [place] [address], [place] [phone] * (ABNORMAL) Basic metabolic panel (01/04/2024 1:30 PM EST) Sodium 139 133 - 145 mmol/L LAB CHEMISTRY METHOD 01/04/2024 5:04 PM [facility] Potassium 4.0 3.5 - 5.5 mmol/L LAB CHEMISTRY METHOD 01/04/2024 5:04 PM [facility] Chloride 110 96 - 110 mmol/L LAB CHEMISTRY METHOD 01/04/2024 5:04 PM [facility] CO2 23 21 - 32 mmol/L LAB CHEMISTRY METHOD 01/04/2024 5:04 PM [facility] Anion Gap 6 3 - 11 LAB CHEMISTRY METHOD 01/04/2024 5:04 PM [facility] Glucose 110(H) 70 - 100 mg/dL LAB CHEMISTRY METHOD 01/04/2024 5:04 PM [facility] BUN 16 5 - 25 mg/dL LAB CHEMISTRY METHOD 01/04/2024 5:04 PM [facility] Creatinine 0.98 0.50 - 1.10 mg/dL LAB CHEMISTRY METHOD 01/04/2024 5:04 PM EST [facility] eGFR 63 >=60 mL/min/1. 73m2 LAB CHEMISTRY METHOD 01/04/2024 5:04 PM EST [facility] Comment:Calculation based on the Chronic Kidney Disease Epidemiology Collaboration (CKD-EPI) equation refit without adjustment for race. BUN/Creatinine Ratio 16.3 LAB CHEMISTRY METHOD 01/04/2024 5:04 PM EST [facility] Calcium 9.3 8.5 - 10.5 mg/dL LAB CHEMISTRY METHOD 01/04/2024 5:04 PM EST [facility] Blood Venous blood specimen / Unknown Venipuncture / Unknown 01/04/2024 1:30 PM EST 01/04/2024 3:37 PM EST us Rouse Finnegan HOUSE PAINTER HELPER LAB BLOOD ORDERABLES Final Resul t [facility] [address] [place] [address], from Last 3 Months or Most Recently Relevant to Health Maintenance Insurance [employer] MEDICARE ADVANTAGE Advance Directives Documents on File Type Date Recorded Patient Rubber Roller Grinder Expl anation Health Care Decision (hx) 07/15/2014 [...] Care Decision (hx) 07/15/2014 AD COUGHLIN DIRECTIVE Care Teams Audio Video Technician Relationship Specialty Start Date End Date Ramin Sequeira DO [address] [place] [phone] PCP - General Internal Medicine 05/02/13
[2024-10-10 14:22] VITALS: BP 122/72; PULSE 80; O2SAT 98; BMI 38.5
== END 2024-10-10 15:03 | disposition home or self-care (01) ==
LOC: HO.HPS 13:59
PROVIDERS: Visit Provider Internal Medicine Pulmonary Disease
DX: R91.8 Other nonspecific abnormal finding of lung field (principal); G47.30 Sleep apnea, unspecified; R06.09 Other forms of dyspnea
CPT/HCPCS: 99204

== ENCOUNTER → 2024-10-10 13:59 | Outpatient (BNVA) | payer MEDICARE, SELFPAY | PROVIDERS: Visit Provider Internal Medicine Pulmonary Disease | DX: G47.33 Obstructive sleep apnea (adult) (pediatric) (principal); Z99.89 Dependence on other enabling machines and devices; R06.09 Other forms of dyspnea; R91.8 Other nonspecific abnormal finding of lung field | CPT/HCPCS: 99202 ==

== ENCOUNTER 2024-10-30 10:48 | Outpatient (REF) | payer MEDICARE, SELFPAY ==
--- OUTSIDE RECORDS SUMMARY | 2024-10-30 12:16 | XMS_ITS | Clinical Summary ---
Author Organization [address] [facility] Address [address] [place] [address] Phone Care Team Providers Care Government Services Professional Name Role Phone Ramin Sequeira DO Primary Care Provider [phone] Social History Tobacco Use Types Packs/Day Years [...] 2005 Zoster Vaccines (1 of 2) 2005 Falls Risk Assessment 01/04/2024 Hepatitis C Screening 01/04/2024 Medicare Annual Wellness Visit 01/04/2024 Osteoporosis Screening (Bone Density Screening) 01/04/2024 Social Influencers of Health Screening 01/04/2024 Depression Screening 02/29/2024 COVID-19 Vaccine ( - 2023-2 5 season) 2024 Influenza Vaccine (#1) 2024 Hypertension/CHF/CAD Annual BMP [...] mg/dL LAB CHEMISTRY METHOD 01/04/2024 5:05 PM [facility] Triglycerides 124 0 - 150 mg/dL LAB CHEMISTRY METHOD 01/04/2024 5:05 PM EST [facility] HDL 44 >=40 mg/dL LAB CHEMISTRY METHOD 01/04/2024 5:05 PM [facility] LDL Calculated 114(H) 0 - 100 mg/dL LAB CHEMISTRY METHOD 01/04/2024 5:05 PM [facility] VLDL Cholesterol Luis M 24.8 mg/dL LAB CHEMISTRY METHOD 01/04/2024 5:05 PM [facility] Non HDL Chol. (LDL+VLDL) 139 <145 mg/dL LAB CHEMISTRY METHOD 01/04/2024 5:05 PM [facility] Chol/HDL Ratio 4.2 0.0 - 4.4 LAB CHEMISTRY METHOD 01/04/2024 5:05 PM [facility] Blood Venous blood specimen / Unknown Venipuncture / Unknown 01/04/2024 1:30 PM EST 01/04/2024 3:37 PM EST us Rouse Finnegan INDUSTRIAL PRODUCTION MANAGER LAB BLOOD ORDERABLES Final Resul t [facility] [address] [place] [address], [place] [phone] * (ABNORMAL) Basic metabolic panel (01/04/2024 1:30 PM EST) Sodium 139 133 - 145 mmol/L LAB CHEMISTRY METHOD 01/04/2024 5:04 PM [facility] Potassium 4.0 3.5 - 5.5 mmol/L LAB CHEMISTRY METHOD 01/04/2024 5:04 PM [facility] Chloride 110 96 - 110 mmol/L LAB CHEMISTRY METHOD 01/04/2024 5:04 PM [facility] CO2 23 21 - 32 mmol/L LAB CHEMISTRY METHOD 01/04/2024 5:04 PM [facility] Anion Gap 6 3 - 11 LAB CHEMISTRY METHOD 01/04/2024 5:04 PM [facility] Glucose 110(H) 70 - 100 mg/dL LAB CHEMISTRY METHOD 01/04/2024 5:04 PM [facility] BUN 16 5 - 25 mg/dL LAB CHEMISTRY METHOD 01/04/2024 5:04 PM [facility] Creatinine 0.98 0.50 - 1.10 mg/dL LAB CHEMISTRY METHOD 01/04/2024 5:04 PM EST [facility] eGFR 63 >=60 mL/min/1. 73m2 LAB CHEMISTRY METHOD 01/04/2024 5:04 PM EST [facility] Comment:Calculation based on the Chronic Kidney Disease Epidemiology Collaboration (CKD-EPI) equation refit without adjustment for race. BUN/Creatinine Ratio 16.3 LAB CHEMISTRY METHOD 01/04/2024 5:04 PM EST [facility] Calcium 9.3 8.5 - 10.5 mg/dL LAB CHEMISTRY METHOD 01/04/2024 5:04 PM EST [facility] Blood Venous blood specimen / Unknown Venipuncture / Unknown 01/04/2024 1:30 PM EST 01/04/2024 3:37 PM EST us Rouse Finnegan INDUSTRIAL PRODUCTION MANAGER LAB BLOOD ORDERABLES Final Resul t [facility] [address] [place] [address], from Last 3 Months or Most Recently Relevant to Health Maintenance Insurance [employer] MEDICARE ADVANTAGE Advance Directives Documents on File Type Date Recorded Patient Center Director Lead Teacher Expl anation Health Care Decision (hx) 07/15/2014 [...] (hx) 07/15/2014 AD COUGHLIN DIRECTIVE Care Teams Government Services Professional Relationship Specialty Start Date End Date Ramin Sequeira DO [address] [place] [phone] PCP - General Internal Medicine 05/02/13
[2024-10-30 13:22] LABS: MANUAL DIFF FLAG NO
[2024-10-30 13:28] LABS: Hematocrit 42.0 % (37.0-47.0); Hemoglobin 14.2 g/dl (12.0-16.0); Imm Gran Abs Auto 0.01 X10*3/uL (0.00-0.03); Imm Gran Pct Auto 0.2 % (0.0-0.4); Lymphocytes Absolute Auto 2.1 X10*3/uL (1.2-4.9); Mean Corpuscular HGB Conc 33.8 g/dl (31.0-35.0); Mean Corpuscular Hemoglobin 31.4 pg (27.0-33.0); Mean Corpuscular Volume 92.9 fL (80.0-98.0); NRBC Abs Auto 0.000 X10*3/uL (0.0-0.012); NRBC Pct Auto 0.0 /100WBC (0.0-0.2); Platelet Count 203 X10*3/uL (160-400); Red Blood Count 4.52 X10*6/uL (4.20-5.50); White Blood Count 5.2 X10*3/uL (4.8-10.8)
[2024-10-30 13:48] LABS: Hemoglobin A1C 120.4197 umol/L; Total Hemoglobin (HGBA1C) 3692.4982 umol/L
[2024-10-30 14:01] LABS: Alanine Aminotransferase 20 U/L (0-31); Albumin Level 4.4 g/dL (3.5-5.0); Alkaline Phosphatase 58 U/L (39-117); Anion Gap 11 (12-20); Aspartate Amino Transferase 21 U/L (5-31); Blood Urea Nitrogen 16 mg/dL (9-16); Calcium 8.9 mg/dL (8.4-10.2); Carbon Dioxide 26 mmol/L (22-29); Chloride 107 mmol/L (96-108); Cholesterol 195 mg/dL (<200); Estimated Glomerular Filt Rate > 60; HDL Cholesterol 55 mg/dL (>40); Potassium 4.1 mmol/L (3.3-5.1); Sodium 140 mmol/L (135-145); Total Protein 7.4 g/dL (6.5-8.0); Triglycerides 61 mg/dL (<150)
[2024-10-30 14:24] LABS: Folate 12.5 ng/mL (> or = 4.0); Vitamin B12 803 pg/mL (200-900)
[2024-10-30 14:25] LABS: Free T4 (Free Thyroxine) 1.00 ng/dL (0.71-1.85)
== END 2024-10-30 10:49 | disposition home or self-care (01) ==
LOC: HO.10HDL 10:48
DX: Z00.00 Encounter for general adult medical examination without abnormal findings (principal); Z13.1 Encounter for screening for diabetes mellitus; Z13.220 Encounter for screening for lipoid disorders; Z13.21 Encounter for screening for nutritional disorder; I10 Essential (primary) hypertension
CPT/HCPCS: 36415; 80053; 80061; 82306; 82607; 82746; 83036; 84439; 84443; 85025

== ENCOUNTER 2024-11-01 08:56 | Outpatient (AMB) | payer MEDICARE, SELFPAY ==
[2024-11-01 09:01] VITALS: BP 122/72; PULSE 83; O2SAT 93; BMI 39.3
--- NOTE | 2024-11-01 09:01 | A.OFFPC_ITS ---
Vital Signs 11/01/24 09:01 Height 5 ft 3.39 in Weight 224 lb 6 oz BMI 39.3 BP 122/72 Blood Pressure Location Lt brachial Position Sitting Pulse 83 Pulse Oximetry (%) 93 Intake Visit Reasons: Annual Exam Fly Frame Tender Required: No Allergies apricot Allergy (Severe, Verified 11/01/24 09:20) swolen throat baclofen Allergy (Severe, Verified 11/01/24 09:20) close throat morphine Allergy (Verified 11/01/24 09:20) Unknown tegaserod (From Zelnorm) Adverse Reaction (Severe, Verified 11/01/24 09:20) rectal bleeding Medication List - Last Reconciled 11/01/24 by Katt Rosenbaum PA-C cholecalciferol (vitamin D3) 10 mcg PO DAILY coenzyme Q10 (Co Q-10) 10 mg PO TID cyclobenzaprine 10 mg PO BEDTIME PRN estradiol 0.5 mg PO DAILY fluticasone propionate 50 mcg/actuation (Flonase Allergy Relief) 1 spray intranasal DAILY loratadine (Allergy Relief (loratadine)) 10 mg PO DAILY losartan 50 mg (2 x 25 mg) PO DAILY multivitamin 1 tab PO DAILY venlafaxine ER 37.5 mg PO DAILY Tobacco use date assessed: 07/31/24 Fall risk assessment: 2 + Falls in past year Last assessed Fall Risk: 11/01/24 Dental Screening Dental Screen Date: 11/01/24 Did you have a dental visit in the last 12 months?: Yes Did you have a dental problem in the last 6 months where you did not have access to dental care?: No Was dental information given to patient?: Patient has dentist HPI Annual Exam HPI Details 69 year old female with past medical his tory of depression, hypertension, diverticulosis. sleep apnea and pulmonary nodules last seen 07/2024 coming in for annual exam. Review of the notes, patient was seen by pulmonology 10/10/[address] was ordered, continued on CPAP therapy and PFT was ordered. Presenting with dizziness when turning the head to the right, falls, sleep disturbances, and diarrhea post-meal. Reports dizziness when turning head to the right, occurring consistently with positional changes, especially when lying down. Experienced three falls in the past month, describing heaviness in feet and legs, now using a stick for support. Reports sleep disturbances, difficulty falling and staying asleep, despite trying melatonin, CBD gummies, and herbal teas. Experiences diarrhea within 25 minutes of eating, persistent since hemicolectomy, suspects dairy sensitivity. Right-sided diaphragmatic hernia containing a small portion of the liver, identified on recent CT scan. mammo/DEXA: 10/2024 scheduled colonoscopy: GI through [facility] ANIMAL CARE GIVER: November 2024 appt Vaccines: UTD [facility] Medical History Babesiasis Lyme disease Surgical History H/O cervical discectomy S/P right rotator cuff repair H/O right hemicolectomy S/P bunionectomy Family History Father No problems noted. Mother Breast cancer Brother No problems noted. Brother No problems noted. Daughter No problems noted. Son No problems noted. Social History Housing: House Patient Tobacco Use Status: Never used Tobacco Tobacco use type: Cigarette e-Cigarette/Vaping Use: Never Used Second Hand Smoke Exposure: No Current occupational status: retired Cognitive needs: No Hearing needs: No Vision needs: Yes Questionnaire PHQ-9 Over the last 2 weeks, how often have you been bothered by any of the following problems? 1. Little interest or pleasure in doing things: not at all 2. Feeling down, depressed, or hopeless: several days 3. Trouble falling or staying asleep, or sleeping too much: nearly every day 4. Feeling tired or having little energy: nearly every day 5. Poor appetite or overeating: nearly every day 6. Feeling bad about yourself - or that you are a failure or have let yourself or your family down: not at all 7. Trouble concentrating on things, such as reading the newspaper or watching television: not at all 8. Moving or speaking so slowly that other people could have noticed. Or the opposite - being so fidgety or restless that you have been moving around a lot more than usual: not at all 9. Thoughts that you would be better off or of hurting yourself in some way: not at all Total score: 10 Depression Screening Interpretation: Positive Depression Screening Follow-up: Existing condition and In treatment Depression Screening Done: Yes 62366 - PHQ-9 Billing: Yes Source: Developed by Drs. Denilson Martin, Meron Trotter, Kwaku Rogers and colleagues, with an educational opal from [employer]. Thrive Questionnaire Date Thrive assessed: 07/30/24 I am a: Patient What is your living situation today?: I have a steady place to live Within the past 12 months, did the food you bought not last and you didn't have the money to get more?: Sometimes True Within the past 12 months, did you worry whether your food would run out before you got money to buy more?: Never true Do you have trouble paying for medicines?: No Do you have trouble getting transportation to medical appointments?: No Do you have trouble paying your heating and electricity bill?: No Do you have trouble taking care of your child, family member or friend?: No Do you have trouble with day-to-day activities such as bathing, preparing meals, shopping, managing finances, etc.?: No Are you currently unemployed and looking for a job?: Yes Are you interested in more education?: No Please select the resources that you would like help with: None Currently or been in a relationship where the following occur: No concerns reported THRIVE Score: 1 AUDIT C Alcohol Use Questionnaire (AUDIT-C) 1. How often do you have a drink containing alcohol?: 2-3 times a week 2. How many drinks containing alcohol do you have on a typical day when you are drinking?: 1 or 2 3. How often do you have six or more drinks on one occasion?: Never Total Score: 3 ALLIE-7 AMB Questionnaire ALLIE-7 Date ALLIE - 7 assessed: 07/31/24 Feeling nervous, anxious, or on edge: 1 = Several days Not being able to stop or control worryin = Several days Worrying too much about different things: 1 = Several days Trouble relaxin = Several days Being so restless that it is hard to sit still: 0 = Not at all Becoming easily annoyed or irritable: 0 = Not at all Feeling afraid as if something awful might happen: 0 = Not at all Total ALLIE-7 score (0-4 normal; 5-9 mild; 10-14 moderate; 15-21 severe): 4 Source: Developed by Drs. Denilson Martin, Meron Trotter, Kwaku Rogers and colleagues, with an educational opal from [employer]. Review of Systems Const Denies body aches, Denies fatigue, Denies fever(s), Denies frequent falls, Denies headache(s) and Denies weakness Eyes Reports no additional complaints and Denies change in vision ENT Denies dysphagia, Denies dizziness, Denies facial pain, Denies headache(s) and Denies odynophagia Card Denies chest pain, Denies syncope, Denies irregular heart rhythm, Denies leg edema, Denies lightheadedness, Denies dyspnea and Reports dyspnea on exertion Resp Denies cough, Denies dyspnea and Reports dyspnea on exertion GI Denies abdominal pain, Denies constipation, Denies dysphagia, Denies dyspepsia, Denies diarrhea, Reports loose stools, Denies nausea, Denies odynophagia and Denies vomiting Denies urinary frequency, Denies dysuria, Denies urinary hesitancy and Denies urinary urgency Musc Denies back pain and Denies myalgias Skin/Breast Reports system reviewed and no additional complaints, except as documented Neuro Denies dizziness, Denies syncope, Denies frequent falls, Denies headache(s) and Denies weakness Psych Reports no additional complaints Endo Denies fatigue Physical exam (Primary Care) Vital Signs: Last Vital Signs Pulse 83 11/01/24 09:01 BP 122/72 11/01/24 09:01 Pulse Ox 93 11/01/24 09:01 BMI result Body Mass Index 39.3 Tobacco/Smoking Status: Tobacco use Status Tobacco use date assessed 07/31/24 11/01/24 09:10 Patient Tobacco Use Status Never used Tobacco 11/01/24 09:10 Tobacco use type Cigarette 11/01/24 09:10 e-Cigarette/Vaping Use Never Used 11/01/24 09:10 PHQ-9: PHQ-9 Score PHQ-9: Total score 11/01/24 12:18 Depression Screening Interpretation: Positive Depression Screening Follow-up: Existing condition and In treatment Thrive Assessment: Date of Thrive Assessment Date Thrive assessed 07/30/24 11/01/24 09:10 Currently or been in a relationship where the following occur: No concerns reported Const General: cooperative, healthy appearing, comfortable and no acute distress Orientation/consciousness: patient oriented x3 HENFL Head: Yes normocephalic Ears: hearing grossly normal bilaterally, external ears normal, TM's normal bilaterally and EAC's normal General nose exam: Normal external nose present Face and sinus: Yes normal facial exam and Yes sinuses nontender Mouth: Normal oral and palatal mucosa present and tongue normal Throat: Yes posterior oropharynx normal Eyes General: appearance normal, both eyes and all related structures Conjunctivae: conjunctivae normal Pupils: Equal, round and reactive pupils present EOM: EOMs intact bilaterally and No Nystagmus present Neck Neck: Yes normal visual inspection, Yes full ROM and Yes no lymphadenopathy Chest Chest palpation & inspection: normal inspection of the chest Resp Effort & Inspection: normal respiratory effort Auscultation: clear to auscultation bilaterally, no crackles, no rales, no r honchi, no wheezes and breath sounds present Cardio Rate: regular rate Rhythm: regular rhythm Peripheral pulses: radial pulses present and dorsalis pedis present GI Inspection: Yes normal to inspection and No Abdominal wall edema Palpation (GI): Soft to palpation, not firm and nontender Auscultation: normal bowel sounds Rectal Exam - Female: deferred General: Yes no CVA tenderness Back/Spine/Pelvis Back: no CVA tenderness Skin General skin exam: no rashes or lesions noted Neuro General: patient oriented x3 Cranial nerves: Yes CN's II-XII intact bilaterally, Yes Equal, round and reactive pupils present, Yes Normal facial strength present, Yes Midline tongue present, Yes Symmetric palate elevation present, Yes Ability to bilaterally rotate head present, Yes Ability to bilaterally elevate shoulders present and No Nystagmus present Cognition (Neuro): normal cognition Gait exam (Neuro): Normal gait present Motor exam (neuro): 5/5 motor strength present throughout Romberg Test: Negative Extrem General: Yes normal to inspection, Yes full ROM, No no pedal edema and No edema Psych Speech and movement: Normal speech and movement present Affect: normal affect Insight: Good insight present (Psych) Judgement: Good judgement present (Psych) Coding Level of Care Code Est Pt Prev Care >65y(84103) Diagnoses Depression F32.A Hypertension I10 Diverticulosis K57.90 Hypercholesterolemia E78.00 Headache R51.9 Breath shortness R06.02 Sleep apnea G47.30 Obesity (BMI 30-39.9) E66.9 Abdominal pain R10.9 Dizziness R42 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 Declining referral for counseling. (2) Hypertension: Code(s): I10 - Essential (primary) hypertension Category: Medical Plan: Continue on current blood pressure medication. Avoid salt intake and encourage healthy diet and regular exercise. (3) Diverticulosis: Code(s): K57.90 - Diverticulosis of intestine, part unspecified, without perforation or abscess without bleeding Category: Medical Plan: S/p colectomy. Continue to follow with GI. (4) Hypercholesterolemia: Code(s): E78.00 - Pure hypercholesterolemia, unspecified Category: Medical Plan: Avoid foods that are high in cholesterol such as red meat, fried foods, eggs and baked goods. Triglyceride goal of less than 150 and LDL goal of less than 130. (5) Headache: Code(s): R51.9 - Headache, unspecified Category: Medical Plan: MRI/MRA was ordered by last PCP to evaluate headache which was not completed as patient is no longer having headache. Advised patient to continue to monitor her symptoms at this time and reach out if she begins to have headaches. (6) Breath shortness: Code(s): R06.02 - Shortness of breath Category: Medical Plan: She is currently following up with pulmonology, CT and PFT have been ordered. (7) Sleep apnea: Code(s): G47.30 - Sleep apnea, unspecified Category: Medical Plan: Uses CPAP faithfully at least 4 hours a night and benefits from this therapy. Continue to follow with Dr. Craig (8) Obesity (BMI 30-39.9): Code(s): E66.9 - Obesity, unspecified Category: Medical Plan: Healthy diet and regular exercise is encouraged. Patient was counseled today on the risks and benefits of GLP-1 injections as well as the dosing schedule. She has no family history or personal history of thyroid disease and no gallbladder disease. Discussed with the patient the potential GI side effects of this medication. Plan to have repeat blood work after one month of therapy to monitor kidney and liver function before increasing the dose of this medication. Follow up in 2 months for a weight check. (9) Abdominal pain: Code(s): R10.9 - Unspecified abdominal pain Category: Medical Plan: Patient reporting episodic abdominal pain that was treated by her last PCP with cyclobenzaprine with good relief. She has not had an episode in several months but does use the cyclobenzaprine as needed. (10) Dizziness: Code(s): R42 - Dizziness and giddiness Category: Medical Plan: For episodes of dizziness plan to obtain bilateral carotid ultrasound for further evaluation. On exam today she is neurovascularly intact and no evidence of cerebellar dysfunction. She will continue to monitor symptoms and reviewed red flag symptoms and when to present for re-evaluation. 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 (12) Insomnia: Code(s): G47.00 - Insomnia, unspecified Category: Medical Plan: For insomnia patient has tried trazodone, melatonin, Benadryl and Ambien all without good benefit. I did discuss Seroquel with her today however as patient is starting new medication plan to hold off on Seroquel at this time. She will continue with CBD gummies and magnesium (13) Pulmonary nodules: Code(s): R91.8 - Other nonspecific abnormal finding of lung field Category: Medical Plan: For pulmonary nodule she has repeat CAT scan being ordered by pulmonology (14) Unsteady gait: Code(s): R26.81 - Unsteadiness on feet Category: Medical Plan: For unsteady gait and lower extremity weakness with recurrent falls plan for physical therapy evaluation and treatment. Neurovascularly intact today without cerebellar dysfunction symptoms. She did have a recent CAT scan in March of 2024 which was normal and did not show any masses or lesions. Consider additional imaging if PT is ineffective (15) Lower extremity weakness: Code(s): R29.898 - Other symptoms and signs involving the musculoskeletal system Category: Medical Plan: See above Plan During the visit, we discussed the potential causes of the patient's dizziness, including carotid artery occlusion and inner ear issues, and the plan to order an ultrasound for further evaluation. We also talked about the patient's falls and unsteadiness, leading to a referral for physical therapy to assess balance and strength. For sleep disturbances, we considered Seroquel but decided to defer its use until after trying the weight loss injection. The patient was informed about the right-sided diaphragmatic hernia and the option for a surgical consult if symptoms worsen. We reviewed the patient's high cholesterol and obesity, discussing dietary modifications and the potential use of weight loss medication, Zepbound, pending insurance approval. Lastly, we emphasized the importance of lifestyle modifications for managing sleep apnea and the potential benefits of weight loss on this condition. This note was constructed using voice recognition software. While every effort has been made to ensure accuracy and medical transcriptionist, still areas may have been included sometimes these areas may affect the content or meeting of the given symptoms. Total time spent caring for the patient today was 30 minutes. This includes time spent before the visit reviewing the chart, time spent during the visit, and time spent after the visit and documentation. Patient was informed and verbally consented to the use of an ambient scribe for clinic note documentation during this visit. Orders: Orders US carotid duplex BI Today R42 - Dizziness and giddiness PT Evaluation and Treatment Today R26.81 - Unsteadiness on feet, R29.898 - Other symptoms and signs involving the musculoskeletal system Medications: New tirzepatide (weight loss) (Zepbound) for 4 weeks 2.5 mg (0.5 mL) subcut QWEEK 2 mL 0RF E66.9 - Obesity, unspecified, E78.00 - Pure hypercholesterolemia, unspecified, G47.30 - Sleep apnea, unspecified, I10 - Essential (primary) hypertension
--- OUTSIDE RECORDS SUMMARY | 2024-11-01 09:28 | XMS_ITS | Clinical Summary ---
Author Organization [facility] Address [address] [place] [address] Phone Care Team Providers Care Extractor Loader And Unloader Name Role Phone Ramin Sequeira DO Primary Care Provider [phone] Social History Tobacco Use Types Packs/Day Years [...] mg/dL LAB CHEMISTRY METHOD 01/04/2024 5:05 PM [facility] Triglycerides 124 0 - 150 mg/dL LAB CHEMISTRY METHOD 01/04/2024 5:05 PM EST [facility] HDL 44 >=40 mg/dL LAB CHEMISTRY METHOD 01/04/2024 5:05 PM [facility] LDL Calculated 114(H) 0 - 100 mg/dL LAB CHEMISTRY METHOD 01/04/2024 5:05 PM [facility] VLDL Cholesterol Luis M 24.8 mg/dL LAB CHEMISTRY METHOD 01/04/2024 5:05 PM [facility] Non HDL Chol. (LDL+VLDL) 139 <145 mg/dL LAB CHEMISTRY METHOD 01/04/2024 5:05 PM [facility] Chol/HDL Ratio 4.2 0.0 - 4.4 LAB CHEMISTRY METHOD 01/04/2024 5:05 PM [facility] Blood Venous blood specimen / Unknown Venipuncture / Unknown 01/04/2024 1:30 PM EST 01/04/2024 3:37 PM EST us Rouse Finnegan [employer] LAB BLOOD ORDERABLES Final Resul t [facility] [address] [place] [address], [place] [phone] * (ABNORMAL) Basic metabolic panel (01/04/2024 1:30 PM EST) Sodium 139 133 - 145 mmol/L LAB CHEMISTRY METHOD 01/04/2024 5:04 PM [facility] Potassium 4.0 3.5 - 5.5 mmol/L LAB CHEMISTRY METHOD 01/04/2024 5:04 PM [facility] Chloride 110 96 - 110 mmol/L LAB CHEMISTRY METHOD 01/04/2024 5:04 PM [facility] CO2 23 21 - 32 mmol/L LAB CHEMISTRY METHOD 01/04/2024 5:04 PM [facility] Anion Gap 6 3 - 11 LAB CHEMISTRY METHOD 01/04/2024 5:04 PM [facility] Glucose 110(H) 70 - 100 mg/dL LAB CHEMISTRY METHOD 01/04/2024 5:04 PM [facility] BUN 16 5 - 25 mg/dL LAB CHEMISTRY METHOD 01/04/2024 5:04 PM [facility] Creatinine 0.98 0.50 - 1.10 mg/dL LAB CHEMISTRY METHOD 01/04/2024 5:04 PM EST [facility] eGFR 63 >=60 mL/min/1. 73m2 LAB CHEMISTRY METHOD 01/04/2024 5:04 PM EST [facility] Comment:Calculation based on the Chronic Kidney Disease Epidemiology Collaboration (CKD-EPI) equation refit without adjustment for race. BUN/Creatinine Ratio 16.3 LAB CHEMISTRY METHOD 01/04/2024 5:04 PM EST [facility] Calcium 9.3 8.5 - 10.5 mg/dL LAB CHEMISTRY METHOD 01/04/2024 5:04 PM EST [facility] Blood Venous blood specimen / Unknown Venipuncture / Unknown 01/04/2024 1:30 PM EST 01/04/2024 3:37 PM EST us Rouse Finnegan [employer] LAB BLOOD ORDERABLES Final Resul t [facility] [address] [place] [address], from Last 3 Months or Most Recently Relevant to Health Maintenance Insurance [employer] MED[employer]ARE [employer]VANTAGE Advance Directives Documents on File Type Date Recorded 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 Process Control Operator Expl anation Health Care Decision (hx) 07/15/2014 AD COUGHLIN DIRECTIVE Health Care Decision (hx) 07/15/2014 AD COUGHILN DIRECTIVE Health Care Decision (hx) 07/15/2014 AD COUGHLIN DIRECTIVE Health Care Decision (hx) 07/15/2014 AD COUGHLIN DIRECTIVE Health Care Decision (hx) 07/15/2014 AD COUGHLIN DIRECTIVE Health Care Decision (hx) 07/15/2014 AD COUGHLIN DIRECTIVE Health Care Decision (hx) 07/15/2014 AD COUGHLIN DIRECTIVE Health Care Decision (hx) 07/15/2014 AD COUGHLIN DIRECTIVE Care Teams Extractor Loader And Unloader Relationship Specialty Start Date End Date Ramin Sequeira DO [address] [place] [phone] PCP - General Internal Medicine 05/02/13
== END 2024-11-01 09:58 | disposition home or self-care (01) ==
LOC: HO.HMCH 08:57
DX: Z00.00 Encounter for general adult medical examination without abnormal findings (principal); F32.A Depression, unspecified; E66.9 Obesity, unspecified; Z68.39 Body mass index [BMI] 39.0-39.9, adult; I10 Essential (primary) hypertension; K57.90 Diverticulosis of intestine, part unspecified, without perforation or abscess without bleeding; E78.00 Pure hypercholesterolemia, unspecified; R51.9 Headache, unspecified; R06.02 Shortness of breath; G47.30 Sleep apnea, unspecified; R42 Dizziness and giddiness; Q79.0 Congenital diaphragmatic hernia

== ENCOUNTER → 2024-11-01 08:56 | Outpatient (BNVA) | payer MEDICARE, SELFPAY | DX: Z00.00 Encounter for general adult medical examination without abnormal findings (principal); R42 Dizziness and giddiness; R19.7 Diarrhea, unspecified; F32.A Depression, unspecified; I10 Essential (primary) hypertension; K57.90 Diverticulosis of intestine, part unspecified, without perforation or abscess without bleeding; E78.00 Pure hypercholesterolemia, unspecified; R51.9 Headache, unspecified; R06.02 Shortness of breath; G47.30 Sleep apnea, unspecified; E66.9 Obesity, unspecified; R10.9 Unspecified abdominal pain; G47.00 Insomnia, unspecified; R91.8 Other nonspecific abnormal finding of lung field; R26.81 Unsteadiness on feet; R29.898 Other symptoms and signs involving the musculoskeletal system; Z91.81 History of falling | CPT/HCPCS: 96127; 99397 ==

== ENCOUNTER → 2024-11-12 11:45 | Outpatient (BNV) | payer MEDICARE, SELFPAY | PROVIDERS: Visit Provider Internal Medicine | DX: Z12.31 Encounter for screening mammogram for malignant neoplasm of breast (principal) | CPT/HCPCS: 77063; 77067 ==

== ENCOUNTER 2024-11-12 11:47 | Outpatient (REF) | payer MEDICARE, SELFPAY ==
--- OUTSIDE RECORDS SUMMARY | 2024-11-12 16:26 | XMS_ITS | Clinical Summary ---
Author Organization 200 [facility] Address [address] [place] [address] Phone Care Team Providers Care Senior Branch Manager Name Role Phone Ramin Sequeira DO Primary Care Provider [phone] Social History Tobacco Use Types Packs/Day Years [...] mg/dL LAB CHEMISTRY METHOD 01/04/2024 5:05 PM [facility] Triglycerides 124 0 - 150 mg/dL LAB CHEMISTRY METHOD 01/04/2024 5:05 PM EST [facility] HDL 44 >=40 mg/dL LAB CHEMISTRY METHOD 01/04/2024 5:05 PM [facility] LDL Calculated 114(H) 0 - 100 mg/dL LAB CHEMISTRY METHOD 01/04/2024 5:05 PM [facility] VLDL Cholesterol Luis M 24.8 mg/dL LAB CHEMISTRY METHOD 01/04/2024 5:05 PM [facility] Non HDL Chol. (LDL+VLDL) 139 <145 mg/dL LAB CHEMISTRY METHOD 01/04/2024 5:05 PM [facility] Chol/HDL Ratio 4.2 0.0 - 4.4 LAB CHEMISTRY METHOD 01/04/2024 5:05 PM [facility] Blood Venous blood specimen / Unknown Venipuncture / Unknown 01/04/2024 1:30 PM EST 01/04/2024 3:37 PM EST us Rouse Finnegan FURNACE CARETAKER LAB BLOOD ORDERABLES Final Resul t [facility] [address] [place] [address], [place] [phone] * (ABNORMAL) Basic metabolic panel (01/04/2024 1:30 PM EST) Sodium 139 133 - 145 mmol/L LAB CHEMISTRY METHOD 01/04/2024 5:04 PM [facility] Potassium 4.0 3.5 - 5.5 mmol/L LAB CHEMISTRY METHOD 01/04/2024 5:04 PM [facility] Chloride 110 96 - 110 mmol/L LAB CHEMISTRY METHOD 01/04/2024 5:04 PM [facility] CO2 23 21 - 32 mmol/L LAB CHEMISTRY METHOD 01/04/2024 5:04 PM [facility] Anion Gap 6 3 - 11 LAB CHEMISTRY METHOD 01/04/2024 5:04 PM [facility] Glucose 110(H) 70 - 100 mg/dL LAB CHEMISTRY METHOD 01/04/2024 5:04 PM [facility] BUN 16 5 - 25 mg/dL LAB CHEMISTRY METHOD 01/04/2024 5:04 PM [facility] Creatinine 0.98 0.50 - 1.10 mg/dL LAB CHEMISTRY METHOD 01/04/2024 5:04 PM EST [facility] eGFR 63 >=60 mL/min/1. 73m2 LAB CHEMISTRY METHOD 01/04/2024 5:04 PM EST [facility] Comment:Calculation based on the Chronic Kidney Disease Epidemiology Collaboration (CKD-EPI) equation refit without adjustment for race. BUN/Creatinine Ratio 16.3 LAB CHEMISTRY METHOD 01/04/2024 5:04 PM EST [facility] Calcium 9.3 8.5 - 10.5 mg/dL LAB CHEMISTRY METHOD 01/04/2024 5:04 PM EST [facility] Blood Venous blood specimen / Unknown Venipuncture / Unknown 01/04/2024 1:30 PM EST 01/04/2024 3:37 PM EST us Rouse Finnegan FURNACE CARETAKER LAB BLOOD ORDERABLES Final Resul t [facility] [address] [place] [address], from Last 3 Months or Most Recently Relevant to Health Maintenance Insurance [employer] MED[employer]ARE ADVANTAGE Advance Directives Documents on File Type Date Recorded Patient Utilization Management Um Nurse Expl anation Health Care Decision (hx) 07/15/2014 [...] (hx) 07/15/2014 AD COUGHLIN DIRECTIVE Care Teams Senior Branch Manager Relationship Specialty Start Date End Date Ramin Sequeira DO [address] [place] [phone] PCP - General Internal Medicine 05/02/13
== END 2024-11-12 11:48 | disposition home or self-care (01) ==
LOC: HO.MAMMO 11:47
DX: Z12.31 Encounter for screening mammogram for malignant neoplasm of breast (principal)
CPT/HCPCS: 77063; 77067

== ENCOUNTER 2024-11-16 08:24 | Outpatient (REF) | payer MEDICARE, SELFPAY ==
--- NOTE | ~2024-11-16 | US_ITS ---
EXAMINATION: BILATERAL CAROTID ULTRASOUND WITH DOPPLER HISTORY: R42 - Dizziness and giddiness COMPARISON: There are no prior studies available for comparison. TECHNIQUE: Real time and Color and Spectral doppler ultrasonography of the carotid and vertebral arteries was performed in multiple planes. FINDINGS: No significant plaque is identified. VERTEBRAL FLOW DIRECTION: Antegrade bilaterally. PEAK SYSTOLIC VELOCITIES (in cm/sec): RIGHT: CCA: Prox: 155 Dist: 99 ICA: Prox: 85 Mid: 84 Dist: 72 ICA/CCA Ratio: 0.55 ECA: 126 Peak ICA end diastolic velocity (EDV): 30 LEFT: CCA: Prox: 147 Dist: 86 ICA: Prox: 132 Mid: 71 Dist: 63 ICA/CCA Ratio: 0.90 ECA: 162 Peak ICA end diastolic velocity (EDV): 37 US/US carotid duplex BI IMPRESSION: 1. No significant stenosis is seen in the right. 2. Findings consistent with 50-79% stenosis of the left ICA. Electronically signed by: Denilson Gibbons MD 11/16/2024 09:26 AM EDT
--- OUTSIDE RECORDS SUMMARY | 2024-11-16 08:57 | XMS_ITS | Clinical Summary ---
Author Organization 200 [facility] Address [address] [place] [address] Phone Care Team Providers Care Air Brush Decorator Name Role Phone Ramin Sequeira DO Primary Care Provider [phone] Social History Tobacco Use Types Packs/Day Years [...] mg/dL LAB CHEMISTRY METHOD 01/04/2024 5:05 PM [facility] Triglycerides 124 0 - 150 mg/dL LAB CHEMISTRY METHOD 01/04/2024 5:05 PM EST [facility] HDL 44 >=40 mg/dL LAB CHEMISTRY METHOD 01/04/2024 5:05 PM [facility] LDL Calculated 114(H) 0 - 100 mg/dL LAB CHEMISTRY METHOD 01/04/2024 5:05 PM [facility] VLDL Cholesterol Luis M 24.8 mg/dL LAB CHEMISTRY METHOD 01/04/2024 5:05 PM [facility] Non HDL Chol. (LDL+VLDL) 139 <145 mg/dL LAB CHEMISTRY METHOD 01/04/2024 5:05 PM [facility] Chol/HDL Ratio 4.2 0.0 - 4.4 LAB CHEMISTRY METHOD 01/04/2024 5:05 PM [facility] Blood Venous blood specimen / Unknown Venipuncture / Unknown 01/04/2024 1:30 PM EST 01/04/2024 3:37 PM EST us Rouse Finnegan 911 TELECOMMUNICATOR LAB BLOOD ORDERABLES Final Resul t [facility] [address] [place] [address], [place] [phone] * (ABNORMAL) Basic metabolic panel (01/04/2024 1:30 PM EST) Sodium 139 133 - 145 mmol/L LAB CHEMISTRY METHOD 01/04/2024 5:04 PM [facility] Potassium 4.0 3.5 - 5.5 mmol/L LAB CHEMISTRY METHOD 01/04/2024 5:04 PM [facility] Chloride 110 96 - 110 mmol/L LAB CHEMISTRY METHOD 01/04/2024 5:04 PM [facility] CO2 23 21 - 32 mmol/L LAB CHEMISTRY METHOD 01/04/2024 5:04 PM [facility] Anion Gap 6 3 - 11 LAB CHEMISTRY METHOD 01/04/2024 5:04 PM [facility] Glucose 110(H) 70 - 100 mg/dL LAB CHEMISTRY METHOD 01/04/2024 5:04 PM [facility] BUN 16 5 - 25 mg/dL LAB CHEMISTRY METHOD 01/04/2024 5:04 PM [facility] Creatinine 0.98 0.50 - 1.10 mg/dL LAB CHEMISTRY METHOD 01/04/2024 5:04 PM EST [facility] eGFR 63 >=60 mL/min/1. 73m2 LAB CHEMISTRY METHOD 01/04/2024 5:04 PM EST [facility] Comment:Calculation based on the Chronic Kidney Disease Epidemiology Collaboration (CKD-EPI) equation refit without adjustment for race. BUN/Creatinine Ratio 16.3 LAB CHEMISTRY METHOD 01/04/2024 5:04 PM EST [facility] Calcium 9.3 8.5 - 10.5 mg/dL LAB CHEMISTRY METHOD 01/04/2024 5:04 PM EST [facility] Blood Venous blood specimen / Unknown Venipuncture / Unknown 01/04/2024 1:30 PM EST 01/04/2024 3:37 PM EST us Rouse Finnegan 911 TELECOMMUNICATOR LAB BLOOD ORDERABLES Final Resul t [facility] [address] [place] [address], from Last 3 Months or Most Recently Relevant to Health Maintenance Insurance [employer] MEDICARE ADVANTAGE Advance Directives Documents on File Type Date Recorded Patient Chief Creative Officer Expl anation Health Care Decision (hx) 07/15/2014 [...] (hx) 07/15/2014 AD COUGHLIN DIRECTIVE Care Teams Air Brush Decorator Relationship Specialty Start Date End Date Ramin Sequeira DO [address] [place] [phone] PCP - General Internal Medicine 05/02/13
== END 2024-11-16 08:25 | disposition home or self-care (01) ==
LOC: HO.US 08:24
DX: R42 Dizziness and giddiness (principal)
CPT/HCPCS: 93880

== ENCOUNTER → 2024-11-16 08:25 | Outpatient (BNV) | payer MEDICARE, SELFPAY | PROVIDERS: Visit Provider Radiology Diagnostic Radiology | DX: R42 Dizziness and giddiness (principal) | CPT/HCPCS: 93880 ==

== ENCOUNTER 2024-12-14 16:16 | Outpatient (REF) | payer MEDICARE, SELFPAY ==
--- NOTE | ~2024-12-14 | CT_ITS ---
CLINICAL HISTORY: R91.8 - Other nonspecific abnormal finding of lung field CT chest without contrast Comparison: CT/SR - CT ANGIO CHEST PE PROTOCOL - 04/08/24 17:25 EST Findings: The heart is normal size. The visualized thyroid and mediastinum are unremarkable. No consolidation or effusion. At least 3 small pulmonary nodules are noted within the right upper lobe measuring up to 3 mm in size. The upper abdomen is unremarkable. No acute fractures. IMPRESSION: 1. No acute disease within changes. 2. Right upper lobe pulmonary nodules measuring up to 3 mm. This document has been electronically signed by: Kayla Goldsmith MD on 12/17/2024 19:29:24
--- OUTSIDE RECORDS SUMMARY | 2024-12-14 18:26 | XMS_ITS | Clinical Summary ---
Author Organization 200 [facility] Address [address] [place] [address] Phone Care Team Providers Care Oil Distributor Tender Name Role Phone Ramin Sequeira DO Primary Care Provider [phone] Social History Tobacco Use Types Packs/Day Years [...] LAB CHEMISTRY METHOD 01/04/2024 5:05 PM EST [facility] HDL 44 >=40 mg/dL LAB [...] 01/04/2024 3:37 PM EST us Rouse Finnegan DIRECTOR OF CONVENTION SERVICES LAB BLOOD ORDERABLES Final Resul t [facility] [address] [place] [address], [place] [phone] * (ABNORMAL) Basic metabolic panel (01/04/2024 1:30 [...] LAB CHEMISTRY METHOD 01/04/2024 5:04 PM EST [facility] eGFR 63 >=60 mL/min/1. 73m2 LAB CHEMISTRY METHOD 01/04/2024 5:04 PM EST [facility] Comment:Calculation based on the Chronic Kidney Disease Epidemiology Collaboration (CKD-EPI) equation refit without adjustment for race. BUN/Creatinine Ratio 16.3 LAB CHEMISTRY METHOD 01/04/2024 5:04 PM EST [facility] Calcium 9.3 8.5 - 10.5 mg/dL LAB CHEMISTRY METHOD 01/04/2024 5:04 PM EST [facility] Blood Venous blood specimen / Unknown Venipuncture / Unknown 01/04/2024 1:30 PM EST 01/04/2024 3:37 PM EST us Rouse Finnegan DIRECTOR OF CONVENTION SERVICES LAB BLOOD ORDERABLES Final Resul t [facility] [address] [place] [address], from Last 3 Months or Most Recently Relevant to Health Maintenance Insurance [employer] MED[employer]ARE ADVANTAGE Advance Directives Documents on File Type Date Recorded Patient Medical Illustrator Expl anation Health Care Decision (hx) 07/15/2014 [...] (hx) 07/15/2014 AD COUGHLIN DIRECTIVE Care Teams Oil Distributor Tender Relationship Specialty Start Date End Date Ramin Sequeira DO [address] [place] [phone] PCP - General Internal Medicine 05/02/13
== END 2024-12-14 16:17 | disposition home or self-care (01) ==
LOC: HO.CT 16:16
PROVIDERS: Visit Provider Internal Medicine Pulmonary Disease
DX: R91.8 Other nonspecific abnormal finding of lung field (principal)
CPT/HCPCS: 71250

== ENCOUNTER → 2024-12-14 16:18 | Outpatient (BNV) | payer MEDICARE, SELFPAY | PROVIDERS: Visit Provider Student in an Organized Health Care Education/Training Program | DX: R91.8 Other nonspecific abnormal finding of lung field (principal) | CPT/HCPCS: 71250 ==

== ENCOUNTER 2025-01-22 12:58 | Outpatient (REF) | payer MEDICARE, SELFPAY ==
--- NOTE | 2025-01-22 13:14 | PFT_ITS ---
Flows: FEV1: 105 % of predicted at 2.24 L FVC: 111 % of predicted at 3.07 L FEV1/FVC: 73 % Bronchodilator response: Present Volumes: Total lung capacity: 99 % of predicted at 4.75 L Residual volume: 88 % of predicted at 1.65 L Slow vital capacity: 107 % of predicted at 3.11 L Expiratory reserve volume: 25 % of predicted at 0.17 L Diffusion capacity: Normal Impression: Mild obstructive reversible ventilatory defect with positive bronchodilator response. Decreased expiratory reserve volume suggests extrathoracic restriction likely secondary to abdominal obesity. MTDD
[2025-01-22 15:05] VITALS: PULSE 79; O2SAT 99
== END 2025-01-22 12:59 | disposition home or self-care (01) ==
LOC: HO.RESP 12:58
PROVIDERS: Visit Provider Internal Medicine Pulmonary Disease
DX: R06.09 Other forms of dyspnea (principal)
CPT/HCPCS: 94060; 94640; 94727; 94729

== ENCOUNTER → 2025-01-22 13:14 | Outpatient (BNV) | payer MEDICARE, SELFPAY | PROVIDERS: Visit Provider Internal Medicine Pulmonary Disease | DX: J98.4 Other disorders of lung (principal) | CPT/HCPCS: 94060; 94727; 94729 ==

== ENCOUNTER 2025-01-31 09:26 | Outpatient (AMB) | payer MEDICARE, SELFPAY ==
--- NOTE | 2025-01-31 10:08 | MHC.PC.OV ---
Vital Signs 01/31/25 10:09 Height 5 ft 3.39 in Weight 209 lb 2 oz BMI 36.6 BP 140/70 H Blood Pressure Location Lt brachial Position Sitting Pulse 74 Pulse Source Pulse Oximeter Temp 97.3 F Temp Source Temporal Artery Scan Pulse Oximetry (%) 97 Oxygen Delivery Method Room Air Intake Visit Reasons: f/u weight loss Intake Note: Patient is here to follow up on Weight loss. Workforce Development Vice President Required: No Repairer Engine Production: Not Required per policy Accompanied by: Self / Same As Patient Allergies apricot Allergy (Severe, Verified 01/31/25 10:15) swolen throat baclofen Allergy (Severe, Verified 01/31/25 10:15) close throat morphine Allergy (Verified 01/31/25 10:15) Unknown tegaserod (From Zelnorm) Adverse Reaction (Severe, Verified 01/31/25 10:15) rectal bleeding Medication List - Last Reconciled 01/31/25 by Katt Rosenbaum PA-C aspirin 81 mg PO DAILY cholecalciferol (vitamin D3) 10 mcg PO DAILY coenzyme Q10 (Co Q-10) 10 mg PO TID cyclobenzaprine 10 mg PO BEDTIME PRN estradiol 0.5 mg PO DAILY fluticasone propionate 50 mcg/actuation (Flonase Allergy Relief) 1 spray intranasal DAILY loratadine (Allergy Relief (loratadine)) 10 mg PO DAILY losartan 50 mg (2 x 25 mg) PO DAILY multivitamin 1 tab PO DAILY tirzepatide (weight loss) (Zepbound) 7.5 mg (0.5 mL) subcut QWEEK trazodone 50 mg PO BEDTIME PRN venlafaxine ER 37.5 mg PO DAILY Tobacco use date assessed: 01/31/25 Fall risk assessment: No Falls in past year Last assessed Fall Risk: 01/31/25 Dental Screening Dental Screen Date: 11/01/24 HPI f/u weight loss HPI Details 69 year old female with past medical history of depression, hypertension, diverticulosis. sleep apnea and pulmonary nodules last seen 10/2024 coming in for follow up. Presenting for a follow-up visit. Regarding recent screenings, the patient reports her mammogram was normal and a carotid artery ultrasound showed one artery was clear and one was partially blocked. She was evaluated by [facility] for numb fingers and stumbling. The finger numbness was attributed to ulnar neuropathy, with a recommendation to sleep with her arms straight, though she finds braces uncomfortable. Her stumbling was attributed to lumbar arthritis, and she was advised to get different shoes and practice walking on stairs. For sleep, she takes trazodone every night and reports it has made a significant difference. She has achieved a weight loss of 15-18 pounds, going from 224 lbs to 206 lbs, with the use of Zepbound and has made dietary changes. [facility] Medical History Babesiasis Lyme disease Surgical History H/O cervical discectomy S/P right rotator cuff repair H/O right hemicolectomy S/P bunionectomy Family History Father No problems noted. Mother Breast cancer Brother No problems noted. Brother No problems noted. Daughter No problems noted. Son No problems noted. Social History Housing: House Patient Tobacco Use Status: Never used Tobacco Tobacco use type: Cigarette e-Cigarette/Vaping Use: Never Used Second Hand Smoke Exposure: No service: No Current occupational status: retired Cognitive needs: No Hearing needs: No Vision needs: Yes Questionnaire Thrive Questionnaire Date Thrive assessed: 07/30/24 I am a: Patient What is your living situation today?: I have a steady place to live Within the past 12 months, did the food you bought not last and you didn't have the money to get more?: Sometimes True Within the past 12 months, did you worry whether your food would run out before you got money to buy more?: Never true Do you have trouble paying for medicines?: No Do you have trouble getting transportation to medical appointments?: No Do you have trouble paying your heating and electricity bill?: No Do you have trouble taking care of your child, family member or friend?: No Do you have trouble with day-to-day activities such as bathing, preparing meals, shopping, managing finances, etc.?: No Are you currently unemployed and looking for a job?: Yes Are you interested in more education?: No Please select the resources that you would like help with: None Currently or been in a relationship where the following occur: No concerns reported THRIVE Score: 1 ALLIE-7 AMB Questionnaire ALLIE-7 Date ALLIE - 7 assessed: 07/31/24 Source: Developed by Drs. Denilson Martin, Meron Trotter, Kwaku Rogers and colleagues, with an educational opal from [employer]. Review of Systems Const Denies body aches, Denies chills, Denies fever(s), Denies headache(s) and Denies poor appetite Eyes Reports no additional complaints ENT Denies dizziness and Denies headache(s) Card Denies chest pain, Denies lightheadedness and Denies dyspnea Resp Denies dyspnea GI Denies abdominal pain, Reports constipation, Denies diarrhea, Denies nausea and Denies vomiting Reports no additional complaints Musc Reports no additional complaints and Denies abnormal gait Skin/Breast Reports system reviewed and no additional complaints, except as documented Neuro Denies abnormal gait, Denies dizziness and Denies headache(s) Psych Reports no additional complaints Physical exam (Primary Care) Vital Signs: Last Vital Signs Temp 97.3 F 01/31/25 10:09 Pulse 74 01/31/25 10:09 BP 140/70 H 01/31/25 10:09 Pulse Ox 97 01/31/25 10:09 Oxygen Delivery Method Room Air 01/31/25 10:09 BMI result Body Mass Index 36.6 Tobacco/Smoking Status: Tobacco use Status Tobacco use date assessed 01/31/25 01/31/25 10:14 Patient Tobacco Use Status Never used Tobacco 01/31/25 10:08 Tobacco use type Cigarette 01/31/25 10:08 e-Cigarette/Vaping Use Never Used 01/31/25 10:08 Thrive Assessment: Date of Thrive Assessment Date Thrive assessed 07/30/24 01/31/25 10:08 Currently or been in a relationship where the following occur: No concerns reported Const General: cooperative, healthy appearing, comfortable and no acute distress Orientation/consciousness: patient oriented x3 HENMT Head: Yes normocephalic Ears: hearing grossly normal bilaterally General nose exam: Normal external nose present Eyes General: appearance normal, both eyes and all related structures Conjunctivae: conjunctivae normal Neck Neck: Yes full ROM and Yes no lymphadenopathy Resp Effort & Inspection: normal respiratory effort Auscultation: clear to auscultation bilaterally, no crackles, no rales, no rhonchi and no wheezes Cardio Rate: regular rate Rhythm: regular rhythm Skin General skin exam: no rashes or lesions noted Neuro General: patient oriented x3 Gait exam (Neuro): Normal gait present Extrem General: Yes normal to inspection, Yes full ROM and No edema Psych Affect: normal affect Attitude: cooperative Insight: Good insight present (Psych) Judgement: Good judgement present (Psych) Coding Level of Care Code Est Pt Level 3 (86709) Diagnoses Depression F32.A Hypertension I10 Hypercholesterolemia E78.00 Breath shortness R06.02 Sleep apnea G47.30 Obesity (BMI 30-39.9) E66.9 Carotid stenosis, left I65.22 Insomnia G47.00 Assessment & Plan Assessment & Plan (1) Depression: Code(s): F32.A - Depression, unspecified Category: Medical Plan: Patient feels her depression is well managed with the venlafaxine at this time. Declining referral for counseling. (2) Hypertension: Code(s): I10 - Essential (primary) hypertension Category: Medical Plan: Blood pressure at home is elevated as well as in the office plan to increase losartan to 100 mg. Avoid salt intake and encourage healthy diet and regular exercise. (3) Hypercholesterolemia: Code(s): E78.00 - Pure hypercholesterolemia, unspecified Category: Medical Plan: Avoid foods that are high in cholesterol such as red meat, fried foods, eggs and baked goods. Triglyceride goal of less than 150 and LDL goal of less than 70. Her LDL is elevated at 128 we did discuss statins however she would like to discuss this further with her vascular surgeon given previous adverse reactions to statins. Consider Zetia (4) Breath shortness: Code(s): R06.02 - Shortness of breath Category: Medical Plan: She is currently following up with pulmonology, CT and PFT have been ordered. (5) Sleep apnea: Code(s): G47.30 - Sleep apnea, unspecified Category: Medical Plan: Uses CPAP faithfully at least 4 hours a night and benefits from this therapy. Continue to follow with Dr. Craig (6) Obesity (BMI 30-39.9): Code(s): E66.9 - Obesity, unspecified Category: Medical Plan: Healthy diet and regular exercise is encouraged. Has been on the Zepbound with good relief and has lost 15 lbs since last visit. She would benefit from being on the injection for an extended period of time as it is beneficial for her sleep apnea and has been sucessfully losing weight and working on lifestyle changes as well. (7) Carotid stenosis, left: Code(s): I65.22 - Occlusion and stenosis of left carotid artery Category: Medical Plan: She will be seeing Dr. Willams 02/07/2025 consideration to be made for statin. She is currently on aspirin daily (8) Insomnia: Code(s): G47.00 - Insomnia, unspecified Category: Medical Plan: Continue on Trazodone as she finds this beneficial. Plan This note was constructed using voice recognition software. While every effort has been made to ensure accuracy and bullet casting operator, still areas may have been included sometimes these areas may affect the content or meeting of the given symptoms. Total time spent caring for the patient today was 20 minutes. This includes time spent before the visit reviewing the chart, time spent during the visit, and time spent after the visit and documentation. Patient was informed and verbally consented to the use of an ambient scribe for clinic note documentation during this visit. Medications: New losartan 100 mg PO DAILY 90 tabs 0RF tirzepatide (weight loss) (Zepbound) 10 mg (0.5 mL) subcut QWEEK 2 mL 0RF Refilled trazodone 50 mg PO BEDTIME PRN 90 tabs 2RF sleep Discontinued losartan Discontinued Reason: Patient no longer taking 50 mg (2 x 25 mg) PO DAILY 90 tabs 0RF
[2025-01-31 10:09] VITALS: BP 140/70; PULSE 74; TEMP 36.3; O2SAT 97; BMI 36.6
== END 2025-01-31 10:46 | disposition home or self-care (01) ==
LOC: HO.HMCH 09:27
DX: F32.A Depression, unspecified (principal); I10 Essential (primary) hypertension; E78.00 Pure hypercholesterolemia, unspecified; R06.02 Shortness of breath; G47.30 Sleep apnea, unspecified; E66.9 Obesity, unspecified; I65.22 Occlusion and stenosis of left carotid artery; G47.00 Insomnia, unspecified

== ENCOUNTER → 2025-01-31 09:26 | Outpatient (BNVA) | payer MEDICARE, SELFPAY | DX: I10 Essential (primary) hypertension (principal); F32.A Depression, unspecified; E78.00 Pure hypercholesterolemia, unspecified; R06.02 Shortness of breath; G47.30 Sleep apnea, unspecified; E66.9 Obesity, unspecified; I65.22 Occlusion and stenosis of left carotid artery; G47.00 Insomnia, unspecified; Z68.36 Body mass index [BMI] 36.0-36.9, adult | CPT/HCPCS: 99212 ==

== ENCOUNTER 2025-02-04 10:38 | Outpatient (AMB) | payer MEDICARE, SELFPAY ==
[2025-02-04 10:54] VITALS: BP 132/82; PULSE 76; O2SAT 98; BMI 36.7
--- NOTE | 2025-02-04 10:54 | A.OFFVIS_ITS ---
Vital Signs 02/04/25 10:54 Height 5 ft 3.39 in Weight 210 lb BMI 36.7 BP 132/82 Blood Pressure Location Lt brachial Position Sitting Pulse 76 Pulse Source Pulse Oximeter Pulse Oximetry (%) 98 Oxygen Delivery Method Room Air Intake Visit Reasons: Dyspnea on exertion/ PFT FU Allergies apricot Allergy (Severe, Verified 02/04/25 11:11) swolen throat baclofen Allergy (Severe, Verified 02/04/25 11:11) close throat morphine Allergy (Verified 02/04/25 11:11) Unknown tegaserod (From Zelnorm) Adverse Reaction (Severe, Verified 02/04/25 11:11) rectal bleeding HPI HPI Dyspnea on exertion/ PFT FU: Details: 69-year-old lady, nonsmoker, with underlying history of moderate obstructive sleep apnea on CPAP, previously seen by [facility] sleep [facility] presents to transfer her care. Patient states that she has been using her CPAP machine with good control of her underlying sleep apnea symptoms. Patient also has underlying pulmonary nodules which were previously followed by [facility] pulmonary. She does have history of working for [employer]. 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 She denies family history of lung disease. Patient does complain of dyspnea on exertion especially when walking up stairs. After the last office visit patient had her follow-up CT chest that showed only 3 mm pulmonary nodule with no other acute findings. Her pulmonary function test shows underlying reactive airway disease. [facility] Medical History Babesiasis Lyme disease Surgical History H/O cervical discectomy S/P right rotator cuff repair H/O right hemicolectomy S/P bunionectomy Family History Father No problems noted. Mother Breast cancer Brother No problems noted. Brother No problems noted. Daughter No problems noted. Son No problems noted. Social History Housing: House Patient Tobacco Use Status: Never used Tobacco Tobacco use type: Cigarette e-Cigarette/Vaping Use: Never Used Second Hand Smoke Exposure: No service: No Current occupational status: retired Cognitive needs: No Hearing needs: No Vision needs: Yes Review of Systems Const Denies daytime sleepiness, Denies excessive sweating, Denies fatigue, Denies fever(s), Denies lethargy, Denies malaise, Denies night sweats, Denies snoring and Denies weight loss Eyes Denies blurry vision and Denies itchy eyes ENT Denies nasal congestion, Denies post nasal drip, Denies sinus pain, Denies sinus pressure and Denies other ( Thrush) Card Denies chest pain, Denies pedal edema, Denies dyspnea, Denies orthopnea and Denies paroxysmal nocturnal dyspnea Resp Denies cough, Denies hemoptysis, Denies excessive phlegm production, Denies dyspnea, Denies snoring and Denies wheezing GI Denies abdominal pain and Denies heartburn Musc Denies myalgias, Denies arthralgias and Denies joint swelling Skin/Breast Denies rash Neuro Denies memory loss and Denies seizure-like activity Psych Denies abnormal sleep pattern, Denies anxiety and Denies memory loss Endo Denies excessive sweating, Denies fatigue and Denies heat intolerance Bhaskar/Lymph Denies easy bruising Aller/Immun Denies itchy eyes, Denies seasonal rhinorrhea and Denies wheezing Physical Exam Vital Signs: Last Vital Signs Pulse 76 02/04/25 10:54 BP 132/82 02/04/25 10:54 Pulse Ox 98 02/04/25 10:54 Oxygen Delivery Method Room Air 02/04/25 10:54 BMI result Body Mass Index 36.7 Const General: no acute distress and alert Nutritional Appearance: not obese Orientation/consciousness: Other orientation findings ( oriented) HEENT Head: Yes atraumatic Eyes General: appearance normal, both eyes and all related structures Sclerae: sclerae normal EOM: EOMs intact bilaterally Neck Neck: Yes supple Lymphatic: no lymphadenopathy noted Resp Effort & Inspection: normal respiratory effort and no use of accessory muscles Auscultation: clear to auscultation bilaterally Cardio Rate: regular rate Rhythm: regular rhythm Heart sounds: no gallops, no murmurs and no rubs Skin General skin exam: other ( warm) Extrem General: No clubbing, No cyanosis and No edema Assessment & Plan Assessment & Plan (1) Reactive airway disease: Code(s): J45.909 - Unspecified asthma, uncomplicated Category: Medical Plan: Results of pulmonary function test reviewed, underlying jcwc-or-lygptprq asthma, will start on empiric Breo and albuterol MDI. (2) Pulmonary nodules: Code(s): R91.8 - Other nonspecific abnormal finding of lung field Category: Medical Plan: Results of CT chest reviewed, 3 mm pulmonary nodule. Will repeat CT chest in 12 months. (3) Sleep apnea: Code(s): G47.30 - Sleep apnea, unspecified Category: Medical Plan: Patient continues on CPAP therapy with reasonable control of his symptoms, currently she is not able to use nasal mask, patient has been advised to discuss different mask types with her DME provider. Medications: New fluticasone furoate-vilanterol 200-25 mcg/dose (Breo Ellipta) 1 inh inhalation DAILY 1 ea 6RF albuterol sulfate 90 mcg/actuation (Ventolin HFA) 2 puffs inhalation Q4-6H PRN 1 ea 6RF shortness of breath or wheezing Coding Level of Care Code Complex visit Add On G2211 Diagnoses Reactive airway disease J45.909 Pulmonary nodules R91.8 Sleep apnea G47.30
== END 2025-02-04 11:40 | disposition home or self-care (01) ==
LOC: HO.HPS 10:39
PROVIDERS: Visit Provider Internal Medicine Pulmonary Disease
DX: J45.909 Unspecified asthma, uncomplicated (principal); R91.8 Other nonspecific abnormal finding of lung field; G47.30 Sleep apnea, unspecified
CPT/HCPCS: 99213; G2211

== ENCOUNTER → 2025-02-04 10:38 | Outpatient (BNVA) | payer MEDICARE, SELFPAY | PROVIDERS: Visit Provider Internal Medicine Pulmonary Disease | DX: J45.909 Unspecified asthma, uncomplicated (principal); R91.8 Other nonspecific abnormal finding of lung field; G47.33 Obstructive sleep apnea (adult) (pediatric); Z99.89 Dependence on other enabling machines and devices | CPT/HCPCS: 99212 ==

== ENCOUNTER 2025-02-07 14:32 | Outpatient (AMB) | payer MEDICARE, SELFPAY ==
[2025-02-07 14:39] VITALS: BMI 37.2
--- NOTE | 2025-02-07 14:39 | MHC.OFFVIS ---
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 Pt had ultrasound because she was getting dizziness when turning head to the right. 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 She reports experiencing dizziness upon turning her head to the right, a symptom which has improved since she started taking aspirin. A recent carotid ultrasound showed her right carotid artery is clear, but the left has a 50-79% blockage. The patient also reports heaviness in her legs, which has been attributed to old spinal injuries from past accidents. Her past medical history is significant for hypertension, which has been monitored by her primary care team. She was treated for Lyme disease three weeks ago after a tick bite, and her associated headaches have since resolved. She denies any history of diabetes. She had a brief three-month history of smoking in 1983. The patient is taking Zepbound for obesity and has lost 20 pounds in three months. She also takes baby aspirin, CoQ10, and drinks coconut water. She now presents to us for vascular evaluation with carotid ultrasound. COUNTS INCLUDE 234 BEDS AT THE [facility] Medical History Babesiasis Lyme disease Surgical History H/O cervical discectomy S/P right rotator cuff repair H/O right hemicolectomy S/P bunionectomy Family History Father No problems noted. Mother Breast cancer Brother No problems noted. Brother No problems noted. Daughter No problems noted. Son No problems noted. Social History Housing: House Patient Tobacco Use Status: Never used Tobacco Tobacco use type: Cigarette e-Cigarette/Vaping Use: Never Used Second Hand Smoke Exposure: No service: No Current occupational status: retired Cognitive needs: No Hearing needs: No Vision needs: Yes Review of Systems Const All systems reviewed & are unremarkable except as noted in HPI and below Reports no additional complaints ENT Reports Normal hearing present Card Denies chest pain, Denies chest pain at rest, Denies chest pain with activity and Denies pedal edema Resp Denies cough GI Denies abdominal pain Musc Denies abnormal gait, Denies muscle cramps and Denies radiating pain into limb Skin/Breast Denies skin ulcer and Denies wounds Neuro Reports Normal hearing present and Denies abnormal gait Psych Reports no additional complaints Physical Exam Vital Signs: BMI result Body Mass Index 37.2 Const General: cooperative, healthy appearing and comfortable Orientation/consciousness: oriented to person, oriented to place and oriented to time HEENT Head: Yes normal to inspection Neck Neck: Yes normal visual inspection Carotids: no bruits Chest Chest palpation & inspection: normal inspection of the chest Resp Effort & Inspection: normal respiratory effort and able to speak in complete sentences Auscultation: clear to auscultation bilaterally, no crackles, no rales, no rhonchi and no wheezes Cardio Rate: regular rate Rhythm: regular rhythm Heart sounds: S1 normal heart sound present and S2 normal heart sound present Bruits: no carotid bruits Peripheral pulses: Peripheral pulses 2+ throughout GI Inspection: Yes normal to inspection Skin Wounds: no wounds Hair: normal Neuro General: oriented to person, oriented to place and oriented to time Cranial nerves: Yes CN's II-XII intact bilaterally and Yes Normal hearing present Cognition (Neuro): normal cognition Motor exam (neuro): 5/5 motor strength present throughout Extrem Other: venous exam: No significant superficial varicosities or spider telangiectasias, minimal edema General: No clubbing, No cyanosis and No edema Psych Appearance: grossly normal Mental Status: mental status grossly normal Speech and movement: Normal speech and movement present Results Reviewed Results Reviewed: Carotid testing dated 11/16/2024 demonstrates right-sided 0-49% stenosis left side 50-79% stenosis with peak systolic of only 132. This would actually put her more to the 0-49% stenosis range. Assessment & Plan Assessment & Plan (1) Bilateral carotid artery stenosis: Code(s): I65.23 - Occlusion and stenosis of bilateral carotid arteries Category: Medical Plan: In short patient has asymptomatic carotid disease. We have reviewed signs and symptoms of a stroke. We also discussed risk factor modification inclusive a healthy diet low in cholesterol. The patient will follow up with us with surveillance ultrasound of the carotids six-month. Should there be any changes or signs or symptoms of a stroke we will be happy to see them back sooner. Thank you for allowing us to participate in this patient's care. If there are any questions or concerns please do not hesitate to contact us. Orders: Orders US carotid duplex BI 6 Months I65.23 - Occlusion and stenosis of bilateral carotid arteries Coding Level of Care Code New Pt Level 4 (25519) Diagnoses Bilateral carotid artery stenosis I65.23
--- OUTSIDE RECORDS SUMMARY | 2025-02-07 22:09 | XMS_ITS | Clinical Summary ---
Author Organization [address] Address [address] [place] [phone] Phone Care Team Providers Care Gristmiller Name Role Phone Ramin Sequeira DO Primary Care Provider [phone] Social History Tobacco Use Types Packs/Day Years [...] Screening 01/04/2024 Depression Screening 02/29/2024 COVID-19 Vaccine (1 - 2024-2 6 season) 2024 Influenza Vaccine (#1) 2024 Colorectal Cancer Screening: Colonoscopy 01/16/2025 01/17/2020 Cholesterol [...] Procedure Name Priority Date/Time Associated Diagnosis Comments LIPID PANEL WITH REFLEX TO DIRECT LDL [...] mg/dL LAB CHEMISTRY METHOD 01/04/2024 5:05 PM [facility] Triglycerides 124 0 - 150 mg/dL LAB CHEMISTRY METHOD 01/04/2024 5:05 PM [facility] HDL 44 >=40 mg/dL LAB CHEMISTRY METHOD 01/04/2024 5:05 PM [facility] LDL Calculated 114(H) 0 - 100 mg/dL LAB CHEMISTRY METHOD 01/04/2024 5:05 PM [facility] VLDL Cholesterol Luis M 24.8 mg/dL LAB CHEMISTRY METHOD 01/04/2024 5:05 PM [facility] Non HDL Chol. (LDL+VLDL) 139 <145 mg/dL LAB CHEMISTRY METHOD 01/04/2024 5:05 PM [facility] Chol/HDL Ratio 4.2 0.0 - 4.4 LAB CHEMISTRY METHOD 01/04/2024 5:05 PM [facility] [place] ([facility]) [facility] Blood Venous blood specimen / Unknown Venipuncture / Unknown 01/04/2024 1:30 PM EST 01/04/2024 3:37 PM EST us [employer] DEVEL[employer] LAB BLOOD ORDERABLES Final Resul t [facility] ([facility]) [facility] [address] [place] [address], from Last 3 Months or Most Recently Relevant to Health Maintenance Insurance [employer] Advance Directives Documents on File Type Date Recorded 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
== END 2025-02-07 15:00 | disposition home or self-care (01) ==
LOC: HO.HVS 14:33
PROVIDERS: Visit Provider Surgery Vascular Surgery
DX: I65.23 Occlusion and stenosis of bilateral carotid arteries (principal)
CPT/HCPCS: 99204

== ENCOUNTER → 2025-02-07 14:32 | Outpatient (BNVA) | payer MEDICARE, SELFPAY | PROVIDERS: Visit Provider Surgery Vascular Surgery | DX: I65.23 Occlusion and stenosis of bilateral carotid arteries (principal) | CPT/HCPCS: 99202 ==